=== PATIENT | male | born 1995 | race Caucasian/White ===

== ENCOUNTER 2017-07-24 02:51 | Emergency (ER) | payer OTHER ==
[2017-07-24] MEDS ORDERED: TORAdol 30 mg Injection IV ONE (03:12)
[2017-07-24] MEDS ORDERED: Phenergan 25 MG INJ IV ONE (03:12)
[2017-07-24] MEDS ORDERED: Sodium Chloride 0.9% 1000 ML 1,000 ML IV STA (03:12)
[2017-07-24] MEDS ORDERED: Hydromorphone 1 mg/ml Ampule IV ONE (03:12)
--- NOTE | 2017-07-24 03:12 | ERPHSYRPT ---
- History of Present Illness Time Seen by Provider: 07/24/17 03:09 Historian: patient Physician History: The patient is a 22-year-old male complaining of right upper quadrant abdominal pain that wraps around to his back. The pain began about 2 hours ago. He last ate lasagna 5 hours ago. He is nauseated but has not vomited. He had a fever this morning. He says he feels bad. 3 weeks ago he was at another hospital for methamphetamine abuse. He has not used any methamphetamine for 3 weeks. He has a past medical history of drug abuse, hepatitis C, and depression. Timing/Duration: today, hour(s) (2), gradual onset, worse Quality: aching, sharpness Abdominal Pain Onset Location: RUQ Pain Radiation: back Severity of Pain-Max: severe Severity of Pain-Current: severe Modifying Factors: Improves With: nothing Associated Symptoms: nausea Previous symptoms: no prior history Allergies/Adverse Reactions: No Known Drug Allergies Allergy (Verified 07/24/17 03:13) Home Medications: Paroxetine HCl [Paxil] 20 mg PO DAILY 08/16/15 [History] Hx Tetanus, Diphtheria Vaccination/Date Given: Yes Hx Influenza Vaccination/Date Given: No Hx Pneumococcal Vaccination/Date Given: No - Review of Systems Constitutional: Fever Eyes: No Symptoms Ears, Nose, & Throat: No Symptoms Respiratory: No Cough, No Dyspnea Cardiac: No Chest Pain, No Edema, No Syncope Abdominal/Gastrointestinal: Abdominal Pain, Nausea, No Vomiting, No Diarrhea Genitourinary Symptoms: No Dysuria Musculoskeletal: No Back Pain, No Neck Pain Skin: No Rash Neurological: No Dizziness, No Focal Weakness, No Sensory Changes Psychological: No Symptoms Endocrine: No Symptoms Hematologic/Lymphatic: No Symptoms Immunological/Allergic: No Symptoms All Other Systems: Reviewed and Negative - Past Medical History Pertinent Past Medical History: Yes Neurological History: No Pertinent History ENT History: No Pertinent History Cardiac History: Arrhythmia Respiratory History: No Pertinent History Endocrine Medical History: No Pertinent History Musculoskeletal History: Other GI Medical History: No Pertinent History History: No Pertinent History Psycho-Social History: Anxiety, Depression Male Reproductive Disorders: No Pertinent History Other Medical History: scoliosis - Past Surgical History Past Surgical History: Yes Neuro Surgical History: No Pertinent History Cardiac: No Pertinent History Respiratory: No Pertinent History Gastrointestinal: No Pertinent History Genitourinary: No Pertinent History Musculoskeletal: Orthopedic Surgery Male Surgical History: No Pertinent History Other Surgical History: right arm repair - Social History Smoking Status: Current every day smoker How long have you smoked: yrs Exposure to second hand smoke: No Drug Use: marijuana Patient Lives Alone: No - Nursing Vital Signs Nursing Vital Signs: Initial Vital Signs Temperature 100.7 F 07/24/17 02:56 Pulse Rate 114 H 07/24/17 02:56 Respiratory Rate 24 07/24/17 02:56 Blood Pressure 136/77 07/24/17 02:56 O2 Sat by Pulse Oximetry 97 07/24/17 02:56 Pain Scale Pain Intensity 5 - Physical Exam General Appearance: moderate distress Eye Exam: PERRL/EOMI, eyes nml inspection Ears, Nose, Throat Exam: normal ENT inspection, pharynx normal, moist mucous membranes Neck Exam: normal inspection, non-tender, supple, full range of motion Respiratory Exam: normal breath sounds, lungs clear, No respiratory distress Cardiovascular Exam: regular rate/rhythm Gastrointestinal/Abdomen Exam: tenderness (RUQ) Rectal Exam: not done Back Exam: normal inspection, normal range of motion, No CVA tenderness, No vertebral tenderness Extremity Exam: normal inspection, normal range of motion, pelvis stable Neurologic Exam: alert, 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, cooperative, normal mood/affect, nml cerebellar function, sensation nml, No motor deficits Skin Exam: normal color, warm, dry SpO2 Interpretation: normal - Course EKG Interpreted by Me: RATE, Sinus Rhythm, NORMAL AXIS, NORMAL INTERVALS, NORMAL QRS, NORMAL ST-T - CT Exams Abdomen/Pelvis CT Interpretation: Tele-radiologist Report, Normal Appendix, No appendicitis, Other (Possible gallbladder sludge. small calcification near left UVJ. No hydronephrsosis. small nonobstructing right renal calculi. per Dr Granados.) Ordered Tests: Active Orders 24 hr Category Date Time Status Clean Catch Urine Specimen STAT Care 07/24/17 03:12 Active EKG-ER Only STAT Care 07/24/17 03:12 Active IV Insertion STAT Care 07/24/17 03:12 Active ABDOMEN AND PELVIS W/0 CONTRAS [CT] Stat Exams 07/24/17 03:13 Taken AMYLASE Stat Lab 07/24/17 03:20 Completed BLOOD CULTURE Stat Lab 07/24/17 03:55 Received CBC W DIFF Stat Lab 07/24/17 03:20 Completed CMP Stat Lab 07/24/17 03:20 Completed CULTURE,URINE Stat Lab 07/24/17 05:33 Received LIPASE Stat Lab 07/24/17 03:20 Completed Lactic Acid Stat Lab 07/24/17 03:45 Completed Manual Differential NC Stat Lab 07/24/17 03:20 Completed UA W/ MICROSCOPIC Stat Lab 07/24/17 05:33 Completed Urine Triage Profile Stat Lab 07/24/17 05:33 Completed Medication Summary Discontinued Medications Generic Name Dose Route Start Last Admin Trade Name Micki PRN Reason Stop Dose Admin Hydromorphone HCl 1 mg 07/24/17 03:12 07/24/17 03:28 Hydromorphone 1 Mg/Ml Ampule IV 07/24/17 03:13 1 mg STAT ONE Administration Hydromorphone HCl Confirm 07/24/17 03:19 Dilaudid 2 Mg Injection Administered 07/24/17 03:20 Dose 2 mg .ROUTE .STK-MED ONE Sodium Chloride 1,000 mls @ 999 mls/hr 07/24/17 03:12 07/24/17 05:29 Sodium Chloride 0.9% 1000 Ml IV 07/24/17 04:12 Infused .Q1H1M STA Infusion Sodium Chloride Confirm 07/24/17 03:19 Sodium Chloride 0.9% 1000 Ml Administered 07/24/17 03:20 Dose 1,000 mls @ ud .ROUTE .STK-MED ONE Ketorolac Tromethamine 30 mg 07/24/17 03:12 07/24/17 03:29 Toradol 30 Mg Injection IV 07/24/17 03:13 30 mg STAT ONE Administration Ketorolac Tromethamine Confirm 07/24/17 03:19 Toradol 30 Mg Injection Administered 07/24/17 03:20 Dose 30 mg .ROUTE .STK-MED ONE Promethazine HCl 25 mg 07/24/17 03:12 07/24/17 03:28 Phenergan 25 Mg Inj IV 07/24/17 03:13 25 mg STAT ONE Administration Promethazine HCl Confirm 07/24/17 03:19 Phenergan 25 Mg Inj Administered 07/24/17 03:20 Dose 25 mg .ROUTE .STK-MED ONE Lab/Rad Data: Laboratory Result Diagrams 07/24/17 03:20 07/24/17 03:20 Laboratory Results 07/24/17 07/24/17 07/24/17 Range/Units 05:33 05:33 03:45 WBC (4.0-10.5) K/mm3 RBC (4.1-5.6) M/mm3 Hgb (12.5-18.0) gm/dl Hct (42-50) % MCV (78-100) fl MCH (26-32) pg MCHC (32-36) g/dl RDW (11.5-14.0) % Plt Count (150-450) K/mm3 MPV (6-9.5) fl Absolute Granulocytes (1.4-6.9) Segmented Neutrophils (36.-66.) % Lymphocytes (Manual) (24-44) % Monocytes (Manual) (0.0-12.0) % Platelet Estimate (NORMAL) RBC Morphology Anisocytosis Sodium (137-145) mmol/L Potassium (3.5-5.1) mmol/L Chloride (98-107) mmol/L Carbon Dioxide (22-30) mmol/L Anion Gap (5-15) MEQ/L BUN (9-20) mg/dL Creatinine (0.66-1.25) mg/dL Estimated GFR ML/MIN Glucose (74-106) mg/dL Lactic Acid 2.5 H (0.4-2.0) Calcium (8.4-10.2) mg/dL Total Bilirubin (0.2-1.3) mg/dL AST (17-59) U/L ALT (0-50) U/L Alkaline Phosphatase (38-126) U/L Serum Total Protein (6.3-8.2) g/dL Albumin (3.5-5.0) g/dL Amylase (30-110) U/L Lipase (23-300) U/L Ur Collection Type CLEAN CATCH Urine Color YELLOW (YELLOW) Urine Appearance CLEAR (CLEAR) Urine pH 7.0 (5-6) Ur Specific [place] 1.005 (1.005-1.025) Urine Protein NEGATIVE (Negative) Urine Ketones NEGATIVE (NEGATIVE) Urine Blood NEGATIVE (0-5) Christian/ul Urine Nitrite NEGATIVE (NEGATIVE) Urine Bilirubin NEGATIVE (NEGATIVE) Urine Urobilinogen NORMAL (0-1) mg/dL Ur Leukocyte Esterase 1+ (NEGATIVE) Urine Microscopic WBC 5-10 (0-5) /HPF Ur Epithelial Cells FEW (FEW) /HPF Urine Bacteria MODERATE (NEGATIVE) /HPF Urine Mucus SLIGHT (NEGATIVE) /HPF Urine Culture Reflexed YES (NO) Urine Glucose NEGATIVE (NEGATIVE) mg/dL Urine Opiates Level NEGATIVE (NEGATIVE) Ur Methadone NEGATIVE (NEGATIVE) Urine Barbiturates NEGATIVE (NEGATIVE) Ur Phencyclidine (PCP) NEGATIVE (NEGATIVE) Urine Amphetamine NEGATIVE (NEGATIVE) U Benzodiazepine Level NEGATIVE (NEGATIVE) Urine Cocaine NEGATIVE (NEGATIVE) Urine Marijuana (THC) NEGATIVE (NEGATIVE) Specimen Received 07/24/17 0530 07/24/17 07/24/17 Range/Units 03:20 03:20 WBC 13.4 H (4.0-10.5) K/mm3 RBC 4.25 (4.1-5.6) M/mm3 Hgb 14.4 (12.5-18.0) gm/dl Hct 41.3 L (42-50) % MCV 97.2 (78-100) fl MCH 33.9 H (26-32) pg MCHC 34.9 (32-36) g/dl RDW 12.5 (11.5-14.0) % Plt Count 293 (150-450) K/mm3 MPV 9.5 (6-9.5) fl Absolute Granulocytes 9.98 H (1.4-6.9) Segmented Neutrophils 75 H (36.-66.) % Lymphocytes (Manual) 14 L (24-44) % Monocytes (Manual) 11 (0.0-12.0) % Platelet Estimate NORMAL (NORMAL) RBC Morphology ABNORMAL Anisocytosis 1+ Sodium 137 (137-145) mmol/L Potassium 3.5 (3.5-5.1) mmol/L Chloride 103 (98-107) mmol/L Carbon Dioxide 26 (22-30) mmol/L Anion Gap 11.2 (5-15) MEQ/L BUN 9 (9-20) mg/dL Creatinine 0.91 (0.66-1.25) mg/dL Estimated GFR > 60.0 ML/MIN Glucose 144 H (74-106) mg/dL Lactic Acid (0.4-2.0) Calcium 9.0 (8.4-10.2) mg/dL Total Bilirubin 0.60 (0.2-1.3) mg/dL AST 20 (17-59) U/L ALT 26 (0-50) U/L Alkaline Phosphatase 83 (38-126) U/L Serum Total Protein 6.6 (6.3-8.2) g/dL Albumin 3.8 (3.5-5.0) g/dL Amylase 42 (30-110) U/L Lipase 40 (23-300) U/L Ur Collection Type Urine Color (YELLOW) Urine Appearance (CLEAR) Urine pH (5-6) Ur Specific [place] (1.005-1.025) Urine Protein (Negative) Urine Ketones (NEGATIVE) Urine Blood (0-5) Christian/ul Urine Nitrite (NEGATIVE) Urine Bilirubin (NEGATIVE) Urine Urobilinogen (0-1) mg/dL Ur Leukocyte Esterase (NEGATIVE) Urine Microscopic WBC (0-5) /HPF Ur Epithelial Cells (FEW) /HPF Urine Bacteria (NEGATIVE) /HPF Urine Mucus (NEGATIVE) /HPF Urine Culture Reflexed (NO) Urine Glucose (NEGATIVE) mg/dL Urine Opiates Level (NEGATIVE) Ur Methadone (NEGATIVE) Urine Barbiturates (NEGATIVE) Ur Phencyclidine (PCP) (NEGATIVE) Urine Amphetamine (NEGATIVE) U Benzodiazepine Level (NEGATIVE) Urine Cocaine (NEGATIVE) Urine Marijuana (THC) (NEGATIVE) Specimen Received - Progress Progress: improved Progress Note: 07/24/17 06:17 pt feeling better after dilaudid 1 mg, phenergan 25 mg, toradol 30 mg, and fluids by IV. Counseled pt/family regarding: lab results, diagnosis, need for follow-up, rad results - Departure Time of Disposition: 06:18 Departure Disposition: Home Clinical Impression: UTI (urinary tract infection), Kidney stone, Gallbladder sludge Condition: Stable Critical Care Time: No Referrals: CARLITOS BROSNON [Primary Care Provider] - Additional Instructions: You have an infection in your bladder. By the abdomen and pelvis CT scan there was possible sludge in your gallbladder. Avoid eating fatty foods. There was also a small stone found in your urinary bladder that may have been from your kidney. There was also a tiny stone seen in your right kidney. You were given Toradol 30 mg, Dilaudid 1 mg, Phenergan 25 mg, and fluids by IV in the ER. You were also given Rocephin 1 g by IV. Take ciprofloxacin 500 mg 2 times a day for 7 days. Take naproxen 500 mg 2 times a day as needed. Follow-up with Dr. Bronson in 1-2 days. Prescriptions: Ciprofloxacin [Cipro 500 MG] 1 tab PO BID #14 tablet Naproxen 500 mg PO BID PRN #30 tablet.
[2017-07-24] MEDS ORDERED: TORAdol 30 mg Injection ONE (03:19)
[2017-07-24] MEDS ORDERED: DILAUDID 2 MG INJECTION ONE (03:19)
[2017-07-24] MEDS ORDERED: Sodium Chloride 0.9% 1000 ML 1,000 ML ONE (03:19)
[2017-07-24] MEDS ORDERED: Phenergan 25 MG INJ ONE (03:19)
[2017-07-24 03:39] LABS: Granulocyte Absolute (ANC) 9.98 (1.4-6.9); Hematocrit 41.3 % (42-50); Hemoglobin 14.4 gm/dl (12.5-18.0); Mean Cell Volume 97.2 fl (78-100); Mean Corpuscular Hemoglobin 33.9 pg (26-32); Mean Corpuscular Hgb Concent. 34.9 g/dl (32-36); Mean Platelet Volume 9.5 fl (6-9.5); Platelet Count 293 K/mm3 (150-450); Red Blood Count 4.25 M/mm3 (4.1-5.6); Red Cell Distribution Width 12.5 % (11.5-14.0); White Blood Count 13.4 K/mm3 (4.0-10.5)
[2017-07-24 03:46] LABS: ALBUMIN 3.8 g/dL (3.5-5.0); ALKALINE PHOSPHATASE 83 U/L (38-126); AMYLASE 42 U/L (30-110); ANION GAP 11.2 MEQ/L (5-15); BLOOD UREA NITROGEN 9 mg/dL (9-20); CHLORIDE 103 mmol/L (98-107); Carbon Dioxide 26 mmol/L (22-30); Creatinine 1 0.91 mg/dL (0.66-1.25); Glucose 144 mg/dL (74-106); LIPASE 40 U/L (23-300); Potassium 3.5 mmol/L (3.5-5.1); SGOT/AST 20 U/L (17-59); SGPT/ALT 26 U/L (0-50); SODIUM 137 mmol/L (137-145); Total Protein 6.6 g/dL (6.3-8.2)
[2017-07-24 03:58] LABS: Lactic Acid 2.5 (0.4-2.0)
[2017-07-24 05:42] LABS: Appearance CLEAR (CLEAR)
[2017-07-24 05:43] LABS: Bacteria MODERATE /HPF (NEGATIVE); Bilirubin NEGATIVE (NEGATIVE); Blood NEGATIVE Ery/ul (0-5); Epithelial Cells FEW /HPF (FEW); Glucose NEGATIVE (NEGATIVE); Ketones NEGATIVE (NEGATIVE); Leukocyte Esterase 1+ (NEGATIVE); Mucus SLIGHT /HPF (NEGATIVE); Nitrite NEGATIVE (NEGATIVE); Protein,Urine Dip NEGATIVE (Negative); Specific Gravity 1.005 (1.005-1.025); Urobilinogen NORMAL mg/dL (0-1)
[2017-07-24 05:43] LABS: Lymphocytes 14 % (24-44); Neutrophils 75 % (36.-66.); Total Cells Counted 100
[2017-07-24 05:44] LABS: ANISOCYTOSIS 1+; Monocyte 11 % (0.0-12.0); Platelet Estimate NORMAL (NORMAL)
[2017-07-24 05:47] LABS: Amphetamine,Urine NEGATIVE (NEGATIVE); Barbiturate,Urine NEGATIVE (NEGATIVE); Benzodiazepine,Urine NEGATIVE (NEGATIVE); Cocaine,Urine NEGATIVE (NEGATIVE); Methadone,Urine NEGATIVE (NEGATIVE); Opiate,Urine NEGATIVE (NEGATIVE); PCP,Urine NEGATIVE (NEGATIVE); THC,Urine NEGATIVE (NEGATIVE)
[2017-07-24] MEDS ORDERED: ROCEPHIN 1 Gm-D5w 50 ml Bag** 1 G/50 ML IVPB IV STA (06:15)
[2017-07-24] MEDS ORDERED: ROCEPHIN 1 Gm-D5w 50 ml Bag** 1 G/50 ML IVPB IV ONE (06:18)
[2017-07-24 06:34] VITALS: BP 108/70; PULSE 68; O2SAT 98
--- NOTE | 2017-07-24 12:53 | XRAY ---
Exam: CT of the abdomen and pelvis without IV contrast from 07/24/2017. CTDI: 11.78 Comparison: CT of the abdomen and pelvis without IV contrast from 03/20/2015. Indication: 22-year-old male with localized right upper quadrant abdominal pain radiating into back, nausea without emesis. Technique: Non-IV contrast axial images were obtained through the abdomen and pelvis. Reconstructed coronal and sagittal images were created and reviewed. Findings: At the superior margin of the AP waist presser image, at least moderate dextroscoliosis is seen centered near the T6 level. The visualized lung bases reveal a subpleural calcified granuloma at the posterior medial left lung base representing no change. Assessment of the solid organs is limited without the use of IV contrast. With this limitation in mind, the liver appears unremarkable. The urinary bladder is mildly distended. No definite gallbladder wall thickening or signs of gallbladder inflammation are seen. No dense calcifications are seen within the gallbladder lumen. There is a slightly higher attenuation within the mid and posterior dependent portions of the gallbladder lumen as compared to the anterior portion of the gallbladder lumen. The possibility of some intraluminal biliary sludge is not excluded. Further evaluation with gallbladder ultrasound may be helpful if symptoms persist. The spleen, pancreas, and adrenal glands appear unremarkable. The kidneys reveal a punctate nonobstructing stone within the middle third of the right kidney measuring about 3 mm in diameter. In addition, there are one or possibly 2 other tiny nonobstructing renal calculi seen on the coronal images. No calcifications are seen within the left kidney. I appreciate no hydronephrosis. However, on axial images #80 and #81, I see a new 2.5 mm calcification at the posterior left lateral margin of the urinary bladder. I believe this is most consistent with a distal left ureteral stone within the intravesicular portion of the distal left ureter. I do not appreciate any significant left hydroureter proximal to this or hydronephrosis. The right ureter reveals no abnormality. The remainder of the urinary bladder appears unremarkable. There is no evidence of abdominal aortic aneurysm. No abnormal retroperitoneal lymphadenopathy is seen. No ventral abdominal wall hernia is seen. There is no free intraperitoneal air. I see no findings to suggest acute appendicitis within the right lower quadrant. Some scattered stool is seen throughout the colon. No bowel obstruction or bowel wall thickening is seen. Pelvic lymph nodes are not enlarged. There is a suggestion trace/minimal free intraperitoneal fluid within the lower posterior pelvis on axial images #73 through #78. This is abnormal in a male. The seminal vesicles and prostate gland appear unremarkable. The skeleton reveals no acute fracture or aggressive bone lesion. Impression: 1. The gallbladder is partially distended and reveals no dense calcifications within it. No gallbladder wall thickening or intrahepatic biliary duct distention is seen. There is a question of some subtle increased attenuation within the posterior dependent portion of the gallbladder lumen which could possibly represent some biliary sludge. If right upper quadrant abdominal pain persists, further evaluation with a gallbladder ultrasound is recommended. 2. There is a new 2.5 mm calcification at the posterior left lateral margin of the urinary bladder, probably at the left UVJ. This does not appear to be causing significant left-sided hydroureter or hydronephrosis. Nevertheless, I believe this represents a tiny distal left ureteral stone. It is new from 03/20/2015. 3. There are 2 or possibly 3 small nonobstructing stones within the right kidney. No acute obstructive uropathy is seen on the right. 4. Trace/minimal free intraperitoneal fluid is seen within the lower posterior pelvis extending slightly more to the right of midline than left. This is abnormal in a male. 5. No other significant acute process is seen within the abdomen or pelvis.
== END 2017-07-24 06:58 | disposition home or self-care (01) ==
LOC: ED 02:51
DX: N39.0 Urinary tract infection, site not specified (principal); N20.0 Calculus of kidney; Z72.0 Tobacco use; F41.8 Other specified anxiety disorders; M41.9 Scoliosis, unspecified
CPT/HCPCS: 36000; 36415; 74176; 80053; 80307; 81000; 82150; 83605; 83690; 85025; 87040; 87086; 93005; 96360; 96365; 96372; 96374; 96375; 99284; J0696; J1170; J1885; J2550

== ENCOUNTER 2017-07-24 19:06 | Inpatient (IN) | payer OTHER ==
[2017-07-24] MEDS ORDERED: TORAdol 30 mg Injection IV ONE (19:34)
[2017-07-24] MEDS ORDERED: Sodium Chloride 0.9% 1000 ML 1,000 ML IV STA (19:34)
[2017-07-24] MEDS ORDERED: Zofran 4 MG/2 ML VIAL IV ONE (19:34)
[2017-07-24] MEDS ORDERED: Zofran 4 MG/2 ML VIAL ONE (19:40)
[2017-07-24] MEDS ORDERED: TORAdol 30 mg Injection ONE (19:40)
[2017-07-24] MEDS ORDERED: Sodium Chloride 0.9% 1000 ML 1,000 ML ONE (19:40)
--- NOTE | 2017-07-24 19:40 | ERPHSYRPT ---
- History of Present Illness Time Seen by Provider: 07/24/17 19:28 Historian: patient Exam Limitations: no limitations Physician History: Pt has been c/o right sided abdominal pain x 5 days, developed fever 3 days ago. He was seen in urgent care yesterday, a throat swab was done, also seen here, and diagnosed with kidney stones and UTI, given one dose of Rocephine. He is nauseated, denies vomiting, diarrhea, bloody urine other complaints. He is still c/o sore throat and difficulty swallowing. Pt admits using iv drugs in the past, he has not been using it for the last 3 years. Timing/Duration: day(s) (5) Activities at Onset: none Quality: cramping, sharpness Abdominal Pain Onset Location: RUQ Pain Radiation: flank (right) Severity of Pain-Max: severe Severity of Pain-Current: severe Modifying Factors: Improves With: nothing Associated Symptoms: nausea Previous symptoms: different symptoms Allergies/Adverse Reactions: No Known Drug Allergies Allergy (Verified 07/24/17 19:38) Home Medications: Paroxetine HCl [Paxil] 20 mg PO DAILY 08/16/15 [History] Hx Tetanus, Diphtheria Vaccination/Date Given: Yes Hx Influenza Vaccination/Date Given: No Hx Pneumococcal Vaccination/Date Given: No - Review of Systems Constitutional: Fever, Chills Ears, Nose, & Throat: Throat Pain Abdominal/Gastrointestinal: Abdominal Pain, Nausea Genitourinary Symptoms: Flank Pain All Other Systems: Reviewed and Negative - Past Medical History Pertinent Past Medical History: Yes Neurological History: No Pertinent History ENT History: No Pertinent History Cardiac History: Arrhythmia Respiratory History: No Pertinent History Endocrine Medical History: No Pertinent History Musculoskeletal History: Other GI Medical History: No Pertinent History History: No Pertinent History Psycho-Social History: Anxiety, Depression Male Reproductive Disorders: No Pertinent History Other Medical History: scoliosis - Past Surgical History Past Surgical History: Yes Neuro Surgical History: No Pertinent History Cardiac: No Pertinent History Respiratory: No Pertinent History Gastrointestinal: No Pertinent History Genitourinary: No Pertinent History Musculoskeletal: Orthopedic Surgery Male Surgical History: No Pertinent History Other Surgical History: right arm repair - Social History Smoking Status: Current every day smoker How long have you smoked: yrs Exposure to second hand smoke: No Drug Use: marijuana Patient Lives Alone: No - Nursing Vital Signs Nursing Vital Signs: Initial Vital Signs Temperature 102.9 F 07/24/17 19:26 Pulse Rate 114 H 07/24/17 19:26 Respiratory Rate 24 07/24/17 19:26 Blood Pressure 129/84 07/24/17 19:26 O2 Sat by Pulse Oximetry 98 07/24/17 19:26 Pain Scale Pain Intensity 7 - Physical Exam General Appearance: no apparent distress Eye Exam: eyes nml inspection Ears, Nose, Throat Exam: normal ENT inspection Neck Exam: normal inspection, non-tender, supple Respiratory Exam: normal breath sounds, lungs clear, airway intact, No chest tenderness Cardiovascular Exam: normal heart sounds, normal peripheral pulses, tachycardia , No murmur Gastrointestinal/Abdomen Exam: tenderness (diffuse, upper abdomen, severe), guarding (voluntary), No distention, No mass Male Genitalia Exam: normal genitalia Rectal Exam: normal rectal tone Back Exam: normal inspection, CVA tenderness (right), vertebral tenderness ( diffuse, lower lumbar spine, no point tenderness, no skin changes.), other ( scoliosis) Extremity Exam: normal inspection Neurologic Exam: alert, 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, cooperative, normal mood/affect, nml station & gait, No motor deficits, No sensory deficit, No motor weakness Skin Exam: normal color, warm, dry, No rash Lymphatic Exam: No adenopathy SpO2 Interpretation: normal Oxygen Delivery: Room Air - Radiology Exams Chest X-ray Interpretation: Interpreted by me, Negative, Other (scoliosis) - CT Exams Abdomen/Pelvis CT Interpretation: Negative, Tele-radiologist Report Soft Tissue Neck CT Interpretation: Negative, Tele-radiologist Report, Other (prominent tonsils, no abscess.) Ordered Tests: Active Orders 24 hr Category Date Time Status EKG-ER Only STAT Care 07/24/17 19:34 Active IV Insertion STAT Care 07/24/17 19:34 Active NPO (ED) STAT Care 07/24/17 19:34 Active ABDOMEN AND PELVIS W/0 CONTRAS [CT] Stat Exams 07/24/17 19:35 Taken CHEST 2 VIEWS (PA AND LAT) Stat Exams 07/24/17 21:33 Taken NECK WITH CONTRAST [CT] Stat Exams 07/24/17 21:32 Taken BLOOD CULTURE Stat Lab 07/24/17 20:00 Received CBC W DIFF Stat Lab 07/24/17 20:00 Completed CMP Stat Lab 07/24/17 20:00 Completed CULTURE, THROAT Stat Lab 07/24/17 20:00 Received CULTURE,URINE Stat Lab 07/24/17 20:00 Received LIPASE Stat Lab 07/24/17 20:00 Completed Lactic Acid Stat Lab 07/24/17 20:02 Completed Lactic Acid Stat Lab 07/24/17 22:07 Ordered [place] Screen Stat Lab 07/24/17 20:00 Completed PROTIME WITH INR Stat Lab 07/24/17 20:00 Completed STREP SCREEN-BETA A Stat Lab 07/24/17 20:00 Completed UA W/RFX UR CULTURE Stat Lab 07/24/17 20:31 Completed Urine Triage Profile Stat Lab 07/24/17 20:31 Completed Medication Summary Discontinued Medications Generic Name Dose Route Start Last Admin Trade Name Freq PRN Reason Stop Dose Admin Sodium Chloride 1,000 mls @ 999 mls/hr 07/24/17 19:34 07/24/17 20:30 Sodium Chloride 0.9% 1000 Ml IV 07/24/17 20:34 Infused .Q1H1M STA Infusion Sodium Chloride Confirm 07/24/17 19:40 Sodium Chloride 0.9% 1000 Ml Administered 07/24/17 19:41 Dose 1,000 mls @ ud .ROUTE .STK-MED ONE Ketorolac Tromethamine 30 mg 07/24/17 19:34 07/24/17 20:04 Toradol 30 Mg Injection IV 07/24/17 19:35 30 mg STAT ONE Administration Ketorolac Tromethamine Confirm 07/24/17 19:40 Toradol 30 Mg Injection Administered 07/24/17 19:41 Dose 30 mg .ROUTE .STK-MED ONE Morphine Sulfate 4 mg 07/24/17 21:49 07/24/17 22:33 Morphine Sulfate 4 Mg Inj IV 07/24/17 21:50 4 mg STAT ONE Administration Morphine Sulfate Confirm 07/24/17 21:55 Morphine Sulfate 4 Mg Inj Administered 07/24/17 21:56 Dose 4 mg .ROUTE .STK-MED ONE Ondansetron HCl 4 mg 07/24/17 19:34 07/24/17 20:04 Zofran 4 Mg/2 Ml Vial IV 07/24/17 19:35 4 mg STAT ONE Administration Ondansetron HCl Confirm 07/24/17 19:40 Zofran 4 Mg/2 Ml Vial Administered 07/24/17 19:41 Dose 4 mg .ROUTE .STK-MED ONE Lab/Rad Data: Laboratory Result Diagrams 07/24/17 20:00 07/24/17 20:00 Laboratory Results 07/24/17 07/24/17 07/24/17 Range/Units 20:31 20:31 20:02 WBC (4.0-10.5) K/mm3 RBC (4.1-5.6) M/mm3 Hgb (12.5-18.0) gm/dl Hct (42-50) % MCV (78-100) fl MCH (26-32) pg MCHC (32-36) g/dl RDW (11.5-14.0) % Plt Count (150-450) K/mm3 MPV (6-9.5) fl Gran % (36.0-66.0) % Eos # (Auto) (0-0.5) Absolute Lymphs (auto) (1.0-4.6) Absolute Monos (auto) (0.0-1.3) Lymphocytes % (24.0-44.0) % Monocytes % (0.0-12.0) % Eosinophils % (0.00-5.0) % Basophils % (0.0-0.4) % Absolute Granulocytes (1.4-6.9) Basophils # (0-0.4) PT (8.83-12.87) SECONDS INR (0.8-3.0) Sodium (137-145) mmol/L Potassium (3.5-5.1) mmol/L Chloride (98-107) mmol/L Carbon Dioxide (22-30) mmol/L Anion Gap (5-15) MEQ/L BUN (9-20) mg/dL Creatinine (0.66-1.25) mg/dL Estimated GFR ML/MIN Glucose (74-106) mg/dL Lactic Acid 2.7 H (0.4-2.0) Calcium (8.4-10.2) mg/dL Total Bilirubin (0.2-1.3) mg/dL AST (17-59) U/L ALT (0-50) U/L Alkaline Phosphatase (38-126) U/L Serum Total Protein (6.3-8.2) g/dL Albumin (3.5-5.0) g/dL Lipase (23-300) U/L Ur Collection Type VOID Urine Color LT.YELLOW (YELLOW) Urine Appearance CLEAR (CLEAR) Urine pH 6.0 (5-6) Ur Specific [place] 1.000 (1.005-1.025) Urine Protein NEGATIVE (Negative) Urine Ketones NEGATIVE (NEGATIVE) Urine Blood NEGATIVE (0-5) Christian/ul Urine Nitrite NEGATIVE (NEGATIVE) Urine Bilirubin NEGATIVE (NEGATIVE) Urine Urobilinogen NORMAL (0-1) mg/dL Ur Leukocyte Esterase NEGATIVE (NEGATIVE) Urine Culture Reflexed NO (NO) Urine Glucose 50 (NEGATIVE) mg/dL Urine Opiates Level NEGATIVE (NEGATIVE) Ur Methadone NEGATIVE (NEGATIVE) Urine Barbiturates NEGATIVE (NEGATIVE) Ur Phencyclidine (PCP) NEGATIVE (NEGATIVE) Urine Amphetamine NEGATIVE (NEGATIVE) U Benzodiazepine Level NEGATIVE (NEGATIVE) Urine Cocaine NEGATIVE (NEGATIVE) Urine Marijuana (THC) NEGATIVE (NEGATIVE) Monoscreen (Negative) Streptococcus Screen (Negative) Specimen Received 07/26 199907/24/17 07/24/17 07/24/17 Range/Units 20:00 20:00 20:00 WBC (4.0-10.5) K/mm3 RBC (4.1-5.6) M/mm3 Hgb (12.5-18.0) gm/dl Hct (42-50) % MCV (78-100) fl MCH (26-32) pg MCHC (32-36) g/dl RDW (11.5-14.0) % Plt Count (150-450) K/mm3 MPV (6-9.5) fl Gran % (36.0-66.0) % Eos # (Auto) (0-0.5) Absolute Lymphs (auto) (1.0-4.6) Absolute Monos (auto) (0.0-1.3) Lymphocytes % (24.0-44.0) % Monocytes % (0.0-12.0) % Eosinophils % (0.00-5.0) % Basophils % (0.0-0.4) % Absolute Granulocytes (1.4-6.9) Basophils # (0-0.4) PT 14.8 H (8.83-12.87) SECONDS INR 1.27 (0.8-3.0) Sodium (137-145) mmol/L Potassium (3.5-5.1) mmol/L Chloride (98-107) mmol/L Carbon Dioxide (22-30) mmol/L Anion Gap (5-15) MEQ/L BUN (9-20) mg/dL Creatinine (0.66-1.25) mg/dL Estimated GFR ML/MIN Glucose (74-106) mg/dL Lactic Acid (0.4-2.0) Calcium (8.4-10.2) mg/dL Total Bilirubin (0.2-1.3) mg/dL AST (17-59) U/L ALT (0-50) U/L Alkaline Phosphatase (38-126) U/L Serum Total Protein (6.3-8.2) g/dL Albumin (3.5-5.0) g/dL Lipase (23-300) U/L Ur Collection Type Urine Color (YELLOW) Urine Appearance (CLEAR) Urine pH (5-6) Ur Specific [place] (1.005-1.025) Urine Protein (Negative) Urine Ketones (NEGATIVE) Urine Blood (0-5) Christian/ul Urine Nitrite (NEGATIVE) Urine Bilirubin (NEGATIVE) Urine Urobilinogen (0-1) mg/dL Ur Leukocyte Esterase (NEGATIVE) Urine Culture Reflexed (NO) Urine Glucose (NEGATIVE) mg/dL Urine Opiates Level (NEGATIVE) Ur Methadone (NEGATIVE) Urine Barbiturates (NEGATIVE) Ur Phencyclidine (PCP) (NEGATIVE) Urine Amphetamine (NEGATIVE) U Benzodiazepine Level (NEGATIVE) Urine Cocaine (NEGATIVE) Urine Marijuana (THC) (NEGATIVE) Monoscreen NEGATIVE (Negative) Streptococcus Screen NEGATIVE (Negative) Specimen Received 07/24/17 07/24/17 Range/Units 20:00 20:00 WBC 11.4 H (4.0-10.5) K/mm3 RBC 3.94 L (4.1-5.6) M/mm3 Hgb 13.3 (12.5-18.0) gm/dl Hct 38.4 L (42-50) % MCV 97.5 (78-100) fl MCH 33.7 H (26-32) pg MCHC 34.6 (32-36) g/dl RDW 12.7 (11.5-14.0) % Plt Count 242 (150-450) K/mm3 MPV 9.3 (6-9.5) fl Gran % 70.3 H (36.0-66.0) % Eos # (Auto) 0.01 (0-0.5) Absolute Lymphs (auto) 1.87 (1.0-4.6) Absolute Monos (auto) 1.50 H (0.0-1.3) Lymphocytes % 16.4 L (24.0-44.0) % Monocytes % 13.1 H (0.0-12.0) % Eosinophils % 0.1 (0.00-5.0) % Basophils % 0.1 (0.0-0.4) % Absolute Granulocytes 8.04 H (1.4-6.9) Basophils # 0.01 (0-0.4) PT (8.83-12.87) SECONDS INR (0.8-3.0) Sodium 138 (137-145) mmol/L Potassium 3.2 L (3.5-5.1) mmol/L Chloride 106 (98-107) mmol/L Carbon Dioxide 23 (22-30) mmol/L Anion Gap 11.7 (5-15) MEQ/L BUN 9 (9-20) mg/dL Creatinine 0.93 (0.66-1.25) mg/dL Estimated GFR > 60.0 ML/MIN Glucose 183 H (74-106) mg/dL Lactic Acid (0.4-2.0) Calcium 8.8 (8.4-10.2) mg/dL Total Bilirubin 0.70 (0.2-1.3) mg/dL AST 20 (17-59) U/L ALT 25 (0-50) U/L Alkaline Phosphatase 70 (38-126) U/L Serum Total Protein 6.3 (6.3-8.2) g/dL Albumin 3.4 L (3.5-5.0) g/dL Lipase 28 (23-300) U/L Ur Collection Type Urine Color (YELLOW) Urine Appearance (CLEAR) Urine pH (5-6) Ur Specific [place] (1.005-1.025) Urine Protein (Negative) Urine Ketones (NEGATIVE) Urine Blood (0-5) Christian/ul Urine Nitrite (NEGATIVE) Urine Bilirubin (NEGATIVE) Urine Urobilinogen (0-1) mg/dL Ur Leukocyte Esterase (NEGATIVE) Urine Culture Reflexed (NO) Urine Glucose (NEGATIVE) mg/dL Urine Opiates Level (NEGATIVE) Ur Methadone (NEGATIVE) Urine Barbiturates (NEGATIVE) Ur Phencyclidine (PCP) (NEGATIVE) Urine Amphetamine (NEGATIVE) U Benzodiazepine Level (NEGATIVE) Urine Cocaine (NEGATIVE) Urine Marijuana (THC) (NEGATIVE) Monoscreen (Negative) Streptococcus Screen (Negative) Specimen Received - Progress Progress: improved Progress Note: 07/24/17 23:[address] Mccauley discussed our results and this patient;'s current condition, he agreed to admit him for iv antibiotics, observation, Gallbladder US, and MRI L-S spine in the morning. I informed patient about this, he agreed. Discussed with .: Garrick Will see patient in: hospital (observation) Counseled pt/family regarding: lab results, diagnosis, rad results - Departure Time of Disposition: 23:23 Departure Disposition: Observation Clinical Impression: Fever Qualifiers: Fever type: unspecified Qualified Code(s): R50.9 - Fever, unspecified Abdominal pain Qualifiers: Abdominal location: right upper quadrant Qualified Code(s): R10.11 - Right upper quadrant pain Condition: Stable Critical Care Time: No Referrals: CARLITOS DEJESUS [Primary Care Provider] -
[2017-07-24 20:08] LABS: Lactic Acid 2.7 (0.4-2.0)
[2017-07-24 20:11] LABS: BASOPHIL % 0.1 % (0.0-0.4); Basophil (Absolute #) 0.01 (0-0.4); Eosinophil % 0.1 % (0.00-5.0); Eosinophil (Absolute #) 0.01 (0-0.5); Granulocyte Absolute (ANC) 8.04 (1.4-6.9); Granulocytes % 70.3 % (36.0-66.0); Hematocrit 38.4 % (42-50); Hemoglobin 13.3 gm/dl (12.5-18.0); Lymphocyte (Absolute #) 1.87 (1.0-4.6); Lymphocytes % 16.4 % (24.0-44.0); Mean Cell Volume 97.5 fl (78-100); Mean Corpuscular Hgb Concent. 34.6 g/dl (32-36); Mean Platelet Volume 9.3 fl (6-9.5); Monocytes % 13.1 % (0.0-12.0); Platelet Count 242 K/mm3 (150-450); Red Blood Count 3.94 M/mm3 (4.1-5.6); Red Cell Distribution Width 12.7 % (11.5-14.0); White Blood Count 11.4 K/mm3 (4.0-10.5)
[2017-07-24 20:20] LABS: Mean Corpuscular Hemoglobin 33.7 pg (26-32)
[2017-07-24 20:24] LABS: INR 1.27 (0.8-3.0)
[2017-07-24 20:27] LABS: ALBUMIN 3.4 g/dL (3.5-5.0); ALKALINE PHOSPHATASE 70 U/L (38-126); ANION GAP 11.7 MEQ/L (5-15); BLOOD UREA NITROGEN 9 mg/dL (9-20); CHLORIDE 106 mmol/L (98-107); Calcium 8.8 mg/dL (8.4-10.2); Carbon Dioxide 23 mmol/L (22-30); Creatinine 1 0.93 mg/dL (0.66-1.25); Glucose 183 mg/dL (74-106); LIPASE 28 U/L (23-300); Potassium 3.2 mmol/L (3.5-5.1); SGOT/AST 20 U/L (17-59); SODIUM 138 mmol/L (137-145); Total Protein 6.3 g/dL (6.3-8.2)
[2017-07-24 20:35] LABS: SGPT/ALT 25 U/L (0-50)
[2017-07-24 20:58] LABS: Amphetamine,Urine NEGATIVE (NEGATIVE); Barbiturate,Urine NEGATIVE (NEGATIVE); Benzodiazepine,Urine NEGATIVE (NEGATIVE); Cocaine,Urine NEGATIVE (NEGATIVE); Methadone,Urine NEGATIVE (NEGATIVE); Opiate,Urine NEGATIVE (NEGATIVE); PCP,Urine NEGATIVE (NEGATIVE); THC,Urine NEGATIVE (NEGATIVE)
[2017-07-24 21:27] LABS: Appearance CLEAR (CLEAR)
[2017-07-24 21:28] LABS: Bilirubin NEGATIVE (NEGATIVE); Blood NEGATIVE Ery/ul (0-5); Glucose 50 mg/dL (NEGATIVE); Ketones NEGATIVE (NEGATIVE); Leukocyte Esterase NEGATIVE (NEGATIVE); Nitrite NEGATIVE (NEGATIVE); Protein,Urine Dip NEGATIVE (Negative); Urobilinogen NORMAL mg/dL (0-1)
[2017-07-24] MEDS ORDERED: MORPHINE SULFATE 4 MG INJ IV ONE (21:49)
[2017-07-24] MEDS ORDERED: MORPHINE SULFATE 4 MG INJ ONE (21:55)
[2017-07-24] MEDS ORDERED: Vancomycin 1GM/ Ns 250ML*** 1 GM/250 ML IVPB IV ONE (23:16)
[2017-07-24] MEDS ORDERED: Zosyn 3.375GM/100 Ml D5W 3.375 GM/100 ML IVPB IV STA (23:16)
[2017-07-24] MEDS ORDERED: Zosyn 3.375GM/100 Ml D5W 3.375 GM/100 ML IVPB IV ONE (23:21)
[2017-07-24] MEDS ORDERED: Vancomycin 1GM/ Ns 250ML*** 250 ML IV ONE (23:21)
[2017-07-25] MEDS: Zosyn 3.375GM/100 Ml D5W 3.375 GM/100 ML IVPB IV SCH ×4 (00:24→18:17)
[2017-07-25] MEDS: TYLENOL 325 MG PO PRN ×5 (00:28→20:02)
[2017-07-25] MEDS: Sodium Chloride 0.9% 1000 ML 1,000 ML IV SCH ×2 (00:30→15:53)
[2017-07-25] MEDS: MORPHINE SULFATE 4 MG INJ IV PRN ×5 (03:30→19:56)
[2017-07-25 06:07] LABS: Granulocyte Absolute (ANC) 6.58 (1.4-6.9); Hematocrit 41.3 % (42-50); Mean Corpuscular Hemoglobin 33.6 pg (26-32); Mean Corpuscular Hgb Concent. 33.9 g/dl (32-36); Mean Platelet Volume 9.2 fl (6-9.5); Platelet Count 222 K/mm3 (150-450); Red Blood Count 4.17 M/mm3 (4.1-5.6); Red Cell Distribution Width 13.1 % (11.5-14.0)
[2017-07-25 06:48] LABS: ANION GAP 10.5 MEQ/L (5-15); BLOOD UREA NITROGEN 9 mg/dL (9-20); CHLORIDE 111 mmol/L (98-107); Calcium 8.7 mg/dL (8.4-10.2); Carbon Dioxide 24 mmol/L (22-30); Creatinine 1 0.92 mg/dL (0.66-1.25); Glucose 94 mg/dL (74-106); Potassium 4.1 mmol/L (3.5-5.1); SODIUM 141 mmol/L (137-145)
[2017-07-25 07:09] LABS: Lymphocytes 28 % (24-44); Monocyte 6 % (0.0-12.0); Neutrophils 66 % (36.-66.); Total Cells Counted 100
[2017-07-25 07:10] LABS: Platelet Estimate NORMAL (NORMAL)
[2017-07-25] MEDS: Nicoderm CQ 21 MG TOP SCH (09:32)
[2017-07-25] MEDS: CHLORASEPTIC SPRAY 180 ML PO PRN ×4 (09:33→20:16)
--- NOTE | 2017-07-25 10:06 | XRAY ---
Exam: Two-view chest from 07/24/2017. Comparison: Two-view chest from 11/14/2015. Indication: Cough, fever. Findings: Upright PA and lateral chest films are symmetrically from dilation. The heart size and contour are normal. The edna and mediastinal structures appear unremarkable. The lungs are well inflated. No air space infiltrates, vascular congestion, pleural fluid, or pneumothorax is seen. EKG leads are seen in place. There is pronounced upper mid thoracic dextroscoliosis and kyphosis. Mild to moderate vertebral endplate spurring is seen at this level. Impression: 1. No acute cardiopulmonary disease is seen, no change from 11/14/2015. 2. Pronounced upper mid thoracic dextroscoliosis and kyphosis with adjacent vertebral endplate spurring-stable.
--- NOTE | 2017-07-25 10:45 | HP ---
CHIEF COMPLAINT: Right upper quadrant abdominal pain and throat pain. HISTORY OF PRESENT ILLNESS: The patient is a 22 year-old white male patient who has significant medical history recently. Approximately three to four weeks ago, he overdosed on methamphetamine. He ended up at [facility] and actually had to be coded due to his heart arrhythmia. Afterwards he recovered nicely but since that time he has been having problems with right upper quadrant abdominal pain. He has been in the emergency room a couple of times. Approximately a week ago he had a right kidney stone in the ureteropelvic junction which the patient reports it did pass but there are two other stones noted in the kidney itself. The patient has continued to complain of right upper quadrant abdominal pain since that time. He began running a fever of 102F plus, seen in the emergency room at 102.9F. Evaluation at that time showed a thickened contracted gallbladder with sludging. He is exquisitely tender in the right upper quadrant. The patient also complained of throat pain and nosebleed on the left side nostril only. PAST MEDICAL HISTORY: Significant use of methamphetamine. The patient reports he has been sober for the last three weeks now and does not intend to use again as this was a significant problem in the past and realizes how close he was to . HOME MEDICATIONS: He had been placed on Cipro from the emergency room but he did not fill it. Ibuprofen 200 mg PRN, naproxen 500 mg b.i.d. which he has not had filled, paroxetine 20 mg daily for depression. ALLERGIES: NKDA. PHYSICAL EXAMINATION: Revealed a well nourished, well developed 22 year-old white male who is currently in mild to moderate distress due to right upper quadrant abdominal pain. His vital signs from the emergency room showed temperature 102.9F, pulse 114, respiratory rate 24, blood pressure 129/94. O2 saturation 98% on room air. HEENT: Normocephalic, atraumatic. Pupils equal round reactive to light. Extraocular movements intact. Oropharynx is moist. There is no evidence of epistaxis at this time. NECK: Supple without lymphadenopathy, thyromegaly or JVD. CHEST: Clear to auscultation with good air movement bilaterally. HEART: Regular rate and rhythm without murmurs, rubs or gallops. ABDOMEN: Exquisitely tender. There is guarding present. Right upper quadrant seems to be the area of most intense pain. EXTREMITIES: Without clubbing, cyanosis or edema. NEUROLOGIC: The patient is alert and oriented x3 with no focal deficits. LAB DATA AND TESTS: The patient's initial laboratory studies: CT scan repeat now shows distended stomach with food and fluid level, contracted gallbladder and appeared to be some sludging present on the previous CT scan. The appendix appeared to be normal. There appears to be no obstructing stone at this time. ASSESSMENT: A patient with probable acute cholecystitis. He has been admitted with IV Vancomycin and Zosyn pending the surgical consultation. He had ultrasound of the gallbladder pending. We also scheduled MRI of his lumbar and thoracic spine as he is complaining of pain in this area as well. He has been made NPO with surgical consultation and receiving IV fluid. The patient's most current labs showed his white count to be 11,000 with no significant left shift. His hemoglobin 14.0, PLT count 222,000. Metabolic panel is essentially normal with BUN 9 and creatinine 0.92. Lactic acid is now 1.4. His EKG showed normal sinus rhythm, normal axis and no acute changes.
[2017-07-25] MEDS: Bactroban OINTMENT TP SCH ×3 (11:50→22:04)
[2017-07-25] MEDS: Paxil 20 MG PO SCH (12:00)
[2017-07-25] MEDS: Zofran 4 MG/2 ML VIAL IV PRN (12:55)
--- NOTE | 2017-07-25 12:55 | XRAY ---
Exam: MRI of the thoracic spine without and with 15 ML's of IV Magnevist from 07/25/2017. Comparison: Thoracic spine radiographs from 11/14/2015. Indication: Back pain, fever, infection of unknown origin. Technique: Sagittal localizer images of the upper and lower thoracic spine were obtained with fish oil markers in place. Subsequently, sagittal T1 FLAIR and T2 fast spin-echo images and axial T1-weighted and T2 weighted fast spin echo images of the thoracic spine were obtained. Lastly, post IV contrast axial and sagittal T1-weighted images were obtained. Findings: I again note at least a moderate rotary dextroscoliosis centered at T5-T6. I see no acute thoracic spine fracture or AP subluxation. Some small Schmorl's nodes are seen scattered throughout the thoracic spine. I again note small anterior lateral vertebral endplate spurs at T5-T6 and T6-T7. There is some slight chronic loss of the anterior vertebral body height of T6 and T7, particularly along the left margin. The thoracic discs appear preserved. Bone marrow signal within the thoracic spine appears unremarkable. The spinal cord appears of normal diameter and signal intensity. No thoracic canal spinal stenosis is seen. The neural foramen appear adequately preserved. I see no abnormal enhancement on the post Magnevist T1 weighted images. There is no evidence of epidural abscess. No findings to suggest vertebral osteomyelitis are seen. I see no definite focal herniated disc. Impression: 1. There is a moderate rotary dextroscoliosis again seen centered at approximately T5-T6. The sagittal images also reveal moderate upper mid dorsal kyphosis representing no change. 2. Mild chronic degenerative spurring is seen at T5-T6 and T6-T7 as well as mild chronic loss of the anterior vertebral body height of the T6 and T7 vertebral bodies, particularly along the left margin. 3. I see no evidence of acute fracture, vertebral osteomyelitis, epidural abscess, or other significant thoracic spine abnormality.
--- NOTE | 2017-07-25 13:16 | XRAY ---
Exam: MRI of the lumbar spine without and with 15 ML's of IV Magnevist from 07/25/2017. Comparison: MRI of the lumbar spine without IV contrast from 04/23/2016, lumbar spine CT from 04/23/2016, and five-view lumbar spine radiograph series from 09/29/2015. Indication: Back pain, fever, infection of unknown origin. Technique: Routine multiplanar, multisequence imaging was obtained through the lumbar spine both without and with IV contrast. Findings: There are 5 lumbar-type vertebra. I again note some small incidental Schmorl's nodes within the lower thoracic and upper lumbar vertebral endplates representing no change. No fracture or AP subluxation is seen. Bone marrow signal appears unremarkable. The disc heights are well-preserved and reveal unremarkable signal intensity. The spinal cord terminates at the upper aspect of L2. I see no definite disc herniation or central lumbar canal stenosis within the upper lumbar spine. The upper lateral neural foramen appear unremarkable on the sagittal images. At L3-L4, the disc and thecal sac appear unremarkable. No focal disc herniation or central canal stenosis is seen. The neural foramen are open bilaterally. The posterior ligamentum flavum and facet joints appear unremarkable. At L4-L5, the disc and thecal sac appear unremarkable. No focal disc herniation or central canal spinal stenosis is seen. The neural foramen are open bilaterally. There is minor hypertrophic degenerative change of the L4-L5 facet joints. At L5-S1, the disc and thecal sac appear unremarkable. No focal disc herniation or central canal spinal stenosis is seen. The lateral neural foramen are open bilaterally. There is minimal hypertrophic degenerative change of the left L5-S1 facet joint. The post-Magnevist axial and sagittal images reveal no abnormal enhancement. There is no evidence of vertebral osteomyelitis or epidural abscess. Impression: 1. The MRI of the lumbar spine without and with IV contrast reveals no significant abnormality representing no change from 04/23/2016. Incidental note of minimal/mild lower lumbar facet joint arthropathy and some small incidental Schmorl's nodes within the lower thoracic spine and upper lumbar spine are seen.
--- NOTE | 2017-07-25 15:12 | XRAY ---
Exam: CT of the neck with IV contrast from 07/24/2017. CTDI: 25.42 Comparison: None. Indication: 22-year-old male with throat pain/sore throat, fever, neck pain. Technique: Multiple post IV contrast axial images were obtained through the neck during and following automated injection of 60 ML's of Isovue 370 contrast material. Reconstructed coronal and sagittal images were created and reviewed. Findings: I note some minor peripheral mucosal thickening within the posterior aspect of the maxillary sinuses, right greater than left. No air-fluid levels are seen within the maxillary sinuses. The posterior nasopharynx appears unremarkable. The base of the tongue appears normal. The tonsillar pillars are mildly prominent, but no abscess is seen. The epiglottis appears of normal thickness. The prevertebral soft tissues appear unremarkable. The vessels enhance well. Mildly enlarged level IIA carotid space lymph nodes are seen without evidence of lymph node necrosis. No other cervical lymphadenopathy is seen. The visualized lower aspect of the parotid glands appears unremarkable. The submandibular glands appear normal. No other neck mass is seen. The thyroid gland enhances uniformly and appears of normal size without thyroid nodules. The thoracic inlet appears unremarkable. The visualized lung apices appear clear. There is a suggestion of a small amount of fluid within the superior pericardial recess on the most inferior image. Significance of this is uncertain. Correlate clinically regarding the need for an echocardiogram. The heart size does not appear enlarged on the chest film from 07/24/2017. I again see a significant upper thoracic rotary dextroscoliosis. No acute fracture or bone destruction is seen. Impression: 1. Mild bilateral palatine tonsillar prominence. No tonsillar or peritonsillar abscess is seen. I do note some prominent carotid space level IIA nodes on each side of midline without lymph node necrosis. No abnormal fluid collection is seen. 2. Minor mucosal thickening is seen at the inferior margin of both maxillary sinuses, right greater than left. No air-fluid levels are seen. 3. On the most inferior image within the chest, there appears to be some fluid within the superior pericardial recess. Significance of this is uncertain. Consider the clinical need for further evaluation with an echocardiogram. 4. The remainder of the CT of the neck appears unremarkable.
--- NOTE | 2017-07-25 17:40 | XRAY ---
Exam: CT of the abdomen and pelvis without IV contrast from 5 hrs. on 07/24/2017. CTDI: 17.24 Comparison: CT of the abdomen and pelvis without IV contrast from 0337 hours on 07/24/2017. Indication: 22-year-old male who complains of low back pain and right-sided abdominal pain radiating to flank, nausea. Technique: Non-IV contrast axial images were obtained through the abdomen and pelvis. Reconstructed coronal and sagittal images were created and reviewed. No oral contrast was given. Findings: Convexity of the mid thoracic spine toward the right is seen at the superior margin of the AP music director image. The lung bases are essentially clear. I again see a small subpleural calcification at the posterior medial left lung base. Evaluation of the solid organs is mildly limited without the use of IV contrast. The liver appears of unremarkable size and reveals no other gross abnormality. The gallbladder currently appears mildly contracted. There is more fluid/secretions and food within the stomach lumen as compared to the earlier film from today. The spleen, pancreas, and adrenal glands appear unremarkable. I again see a punctate nonobstructing stone within the mid to lower pole of the right kidney. No other definite stones are seen within either kidney. I see no evidence of hydronephrosis. There is a paucity of intraperitoneal fat. This makes identification of the ureters throughout their course more difficult. I again identify a 3 mm punctate calcification at the posterior left lateral margin of the urinary bladder. This is unchanged. I'm not sure whether this represents a small calcification at the left ureterovesical junction or a calcification immediately adjacent to this site. I do not detect proximal hydroureter on the left. This calcification is new from the CT dated 03/20/2015. The abdominal aorta appears of normal diameter. No abnormal retroperitoneal lymphadenopathy is seen. Moderate colonic stool retention is seen without evidence of obstruction. I believe there is some fluid-filled distal small bowel within lower pelvis which displays some air-fluid levels. No free intraperitoneal air is seen. There is some fluid-filled small bowel within the pelvis. No bowel obstruction is seen. I see no definite findings to suggest appendicitis within the right lower quadrant. No enlarged pelvic lymph nodes are seen. I do note a small amount of free intraperitoneal fluid within the lower posterior pelvic midline. The amount of free fluid is greater than that seen on the exam from earlier today. The reason for this free fluid is not clear. The seminal vesicles and prostate gland appear unremarkable. The remainder of the urinary bladder is normal. The skeleton reveals no acute fracture or aggressive bone process. Impression: 1. Compared to the CT study from earlier today, there is more distention of the stomach with fluid/secretions or food. The gallbladder now appears contracted. 2. I believe there is a small amount of free intraperitoneal fluid within lower pelvic midline. This has increased slightly compared to the earlier CT study: from today. The reason for this is not clear. 3. I see no convincing findings of appendicitis within the right lower quadrant. 4. Nonobstructing punctate right renal stone is unchanged. Also, a 3 mm calcification at the posterior lateral margin of the urinary bladder on the left is unchanged. No definite hydroureter is seen proximal to this site. I'm not sure whether this lies within the left ureterovesical junction or immediately adjacent to this region. Correlate clinically. 5. Moderate scattered stool is seen within the colon. There is no evidence of bowel obstruction. I do note some mild air-fluid levels within the mid to lower pelvis within the small bowel. Correlate clinically regarding an ileus or enteritis. No free intraperitoneal air is seen..
[2017-07-26] MEDS: TYLENOL 325 MG PO PRN ×6 (00:11→22:19)
[2017-07-26] MEDS: MORPHINE SULFATE 4 MG INJ IV PRN ×6 (00:12→22:18)
[2017-07-26] MEDS: Zosyn 3.375GM/100 Ml D5W 3.375 GM/100 ML IVPB IV SCH ×5 (00:12→23:29)
[2017-07-26] MEDS: CHLORASEPTIC SPRAY 180 ML PO PRN ×4 (00:13→23:38)
[2017-07-26] MEDS: Sodium Chloride 0.9% 1000 ML 1,000 ML IV SCH ×2 (02:40→14:16)
[2017-07-26] MEDS: Zofran 4 MG/2 ML VIAL IV PRN ×2 (04:32→12:42)
[2017-07-26 05:59] LABS: BASOPHIL % 0.2 % (0.0-0.4); Basophil (Absolute #) 0.02 (0-0.4); Eosinophil % 0.6 % (0.00-5.0); Eosinophil (Absolute #) 0.06 (0-0.5); Granulocyte Absolute (ANC) 6.06 (1.4-6.9); Granulocytes % 59.4 % (36.0-66.0); Hematocrit 35.3 % (42-50); Hemoglobin 12.2 gm/dl (12.5-18.0); Lymphocyte (Absolute #) 2.27 (1.0-4.6); Lymphocytes % 22.3 % (24.0-44.0); Mean Cell Volume 98.1 fl (78-100); Mean Corpuscular Hgb Concent. 34.6 g/dl (32-36); Mean Platelet Volume 9.1 fl (6-9.5); Monocyte (Absolute #) 1.79 (0.0-1.3); Monocytes % 17.5 % (0.0-12.0); Platelet Count 206 K/mm3 (150-450); Red Cell Distribution Width 12.5 % (11.5-14.0); White Blood Count 10.2 K/mm3 (4.0-10.5)
[2017-07-26 06:11] LABS: ALBUMIN 2.8 g/dL (3.5-5.0); ALKALINE PHOSPHATASE 55 U/L (38-126); ANION GAP 6.5 MEQ/L (5-15); BLOOD UREA NITROGEN 6 mg/dL (9-20); CHLORIDE 108 mmol/L (98-107); Calcium 8.1 mg/dL (8.4-10.2); Carbon Dioxide 26 mmol/L (22-30); Creatinine 1 0.75 mg/dL (0.66-1.25); Glucose 104 mg/dL (74-106); Potassium 3.6 mmol/L (3.5-5.1); SGOT/AST 14 U/L (17-59); SGPT/ALT 16 U/L (0-50); SODIUM 136 mmol/L (137-145); Total Protein 5.5 g/dL (6.3-8.2)
[2017-07-26 06:23] LABS: Mean Corpuscular Hemoglobin 33.8 pg (26-32)
[2017-07-26 07:29] LABS: AMYLASE 32 U/L (30-110); LIPASE 10 U/L (23-300)
--- NOTE | 2017-07-26 08:27 | XRAY ---
Exam: Gallbladder ultrasound from 07/25/2017. Comparison: CT of the abdomen and pelvis without IV contrast from 07/24/2017. Indication: Abdominal pain, hepatitis C, fever. Findings: The body and head of the pancreas appear unremarkable. The pancreatic tail is not well seen due to overlying bowel gas. The liver appears of unremarkable size. No focal hepatic mass or biliary duct distention is seen. Normal blood flow towards the liver is seen within the portal vein. The gallbladder is distended and reveals no intraluminal stones or significant biliary sludge. The gallbladder wall measures 1.9 mm in thickness which is normal. No pericholecystic edema or fluid is seen. The proximal common bile duct measures 3.6 mm which is normal. No free fluid is seen within the right upper quadrant. The right kidney measures 9.51 cm in length and reveals no hydronephrosis or definite mass. Prior punctate nonobstructing stone within the middle third of the right kidney on CT study of 07/24/2017 is unable to be detected on today's ultrasound. CT is more sensitive for evaluation of this regard. Impression: 1. I see no findings of cholelithiasis, abnormal gallbladder enlargement, gallbladder wall thickening, or biliary duct distention. The remainder of the right upper quadrant abdominal ultrasound appears essentially unremarkable.
[2017-07-26] MEDS: Nicoderm CQ 21 MG TOP SCH (08:35)
[2017-07-26] MEDS: Paxil 20 MG PO SCH (09:53)
[2017-07-26] MEDS: Bactroban OINTMENT TP SCH ×3 (09:53→22:14)
[2017-07-26 14:11] LABS: Slide Review 1 YES
[2017-07-27] MEDS: MORPHINE SULFATE 4 MG INJ IV PRN ×3 (02:12→12:04)
[2017-07-27] MEDS: Sodium Chloride 0.9% 1000 ML 1,000 ML IV SCH (02:13)
[2017-07-27] MEDS: TYLENOL 325 MG PO PRN (02:16)
[2017-07-27 05:33] LABS: BASOPHIL % 0.3 % (0.0-0.4); Basophil (Absolute #) 0.02 (0-0.4); Eosinophil % 2.3 % (0.00-5.0); Eosinophil (Absolute #) 0.14 (0-0.5); Granulocyte Absolute (ANC) 2.21 (1.4-6.9); Granulocytes % 36.5 % (36.0-66.0); Hemoglobin 12.3 gm/dl (12.5-18.0); Lymphocyte (Absolute #) 2.43 (1.0-4.6); Mean Cell Volume 97.3 fl (78-100); Mean Corpuscular Hemoglobin 33.2 pg (26-32); Mean Corpuscular Hgb Concent. 34.2 g/dl (32-36); Monocyte (Absolute #) 1.27 (0.0-1.3); Monocytes % 20.9 % (0.0-12.0); Platelet Count 224 K/mm3 (150-450); Red Cell Distribution Width 12.6 % (11.5-14.0); White Blood Count 6.1 K/mm3 (4.0-10.5)
[2017-07-27 05:52] LABS: ALBUMIN 2.8 g/dL (3.5-5.0); ALKALINE PHOSPHATASE 56 U/L (38-126); BLOOD UREA NITROGEN 5 mg/dL (9-20); CHLORIDE 109 mmol/L (98-107); Calcium 8.3 mg/dL (8.4-10.2); Carbon Dioxide 28 mmol/L (22-30); Creatinine 1 0.72 mg/dL (0.66-1.25); Glucose 97 mg/dL (74-106); Potassium 3.7 mmol/L (3.5-5.1); SGOT/AST 32 U/L (17-59); SGPT/ALT 26 U/L (0-50); SODIUM 140 mmol/L (137-145); Total Protein 5.5 g/dL (6.3-8.2)
[2017-07-27] MEDS: Zosyn 3.375GM/100 Ml D5W 3.375 GM/100 ML IVPB IV SCH ×2 (06:07→11:26)
[2017-07-27] MEDS: Nicoderm CQ 21 MG TOP SCH (08:03)
[2017-07-27] MEDS: CHLORASEPTIC SPRAY 180 ML PO PRN (08:03)
[2017-07-27] MEDS: Paxil 20 MG PO SCH (09:54)
[2017-07-27] MEDS: Bactroban OINTMENT TP SCH ×2 (09:55→14:40)
[2017-07-27] MEDS ORDERED: MORPHINE SULFATE 4 MG INJ IV PRN (12:27)
--- NOTE | 2017-07-27 12:37 | PCM.DS ---
Discharge Summary Date of Admission: 07/25/17 08:00 Admitting Physician: CARLITOS BRONSON Consults: Consults on Case 07/25/17 08:43 Consult Surgery ROUTINE Primary Care Provider: CARLITOS BRONSON Allergies Allergies No Known Drug Allergies Allergy (Verified 07/24/17 19:38) Hospital Summary - Hospital Course Hospital Course: Pt came in to ER with abdominal pain in RUQ, sore throat/neck pain, and fever of 102.9. He was admitted for further workup. Of note, in the past few weeks prior to admission he had been taken to with methamphetamine overdose and was actually coded there. Afterward he developed RUQ pain, was noted to have a R kidney stone in the UPJ which passed apparently. Initial WBC 11.4, lactic acid 2.7 (decreased rapidly after admission with IV fluids). BUN/cr 9 and 0.93. K+ at admission 3.2. Lipase, AST, ALT, and alk phos nl on admission. Pt had a CT abd/pelvis at admission that showed possible gallbladder sludge. u/ s on 07/25 of gallbladder wtih no enlargement, thickening, or chlelithiasis; no biliary duct distention. CT neck with contrast showed mild palatine tonsillar prominence (noted prominent carotid space level IIA nodes bilaterally without necrosis) and mild mucosal thicekning in maxillary sinuses. Strep swab was negative. Monospot negative. CXR negative for acute changes. MRI L-spine with and without contrast with minor degenerative change, nothing acute. MRI T-spine without acute changes; dextroscoliosis present. Surgery consult was done and they opted for no surgery at this time. Recommended if still having pain next week, get a HIDA scan. Pt has been on zosyn (day #3) and has been afebrile for the past 24 hours. He has tolerated a liquid diet and would like to eat more. his pain is down to 5/ 10. If he tolerates po well, will send him home on augmentin this evening. Follow up with Dr. Bronson next week. - Vitals & Intake/Output Vital Signs: Vital Signs Temperature 98.7 F 07/27/17 12:00 Pulse Rate 55 L 07/27/17 12:00 Respiratory Rate 17 07/27/17 12:00 Blood Pressure 127/84 07/27/17 12:00 O2 Sat by Pulse Oximetry 94 L 07/27/17 12:00 Intake & Output: Intake & Output 07/25/17 07/26/17 07/27/17 07/28/17 11:59 11:59 11:59 11:59 Intake Total 0 3520 4243 Output Total 2150 2750 Balance 0 1370 1493 Weight 75.8 kg - Lab Result Diagrams: 07/27/17 05:15 07/27/17 05:15 Lab Results-Last 24 Hrs: Lab Results-Last 24 Hours 07/26/17 07/27/17 07/27/17 Range/Units 05:35 05:15 05:15 WBC 6.1 (4.0-10.5) K/mm3 RBC 3.70 L (4.1-5.6) M/mm3 Hgb 12.3 L (12.5-18.0) gm/dl Hct 36.0 L (42-50) % MCV 97.3 (78-100) fl MCH 33.2 H (26-32) pg MCHC 34.2 (32-36) g/dl RDW 12.6 (11.5-14.0) % Plt Count 224 (150-450) K/mm3 MPV 9.0 (6-9.5) fl Gran % 36.5 (36.0-66.0) % Eos # (Auto) 0.14 (0-0.5) Absolute Lymphs (auto) 2.43 (1.0-4.6) Absolute Monos (auto) 1.27 (0.0-1.3) Lymphocytes % 40.0 (24.0-44.0) % Monocytes % 20.9 H (0.0-12.0) % Eosinophils % 2.3 (0.00-5.0) % Basophils % 0.3 (0.0-0.4) % Absolute Granulocytes 2.21 (1.4-6.9) Basophils # 0.02 (0-0.4) Sodium 140 (137-145) mmol/L Potassium 3.7 (3.5-5.1) mmol/L Chloride 109 H (98-107) mmol/L Carbon Dioxide 28 (22-30) mmol/L Anion Gap 7.0 (5-15) MEQ/L BUN 5 L (9-20) mg/dL Creatinine 0.72 (0.66-1.25) mg/dL Estimated GFR > 60.0 ML/MIN Glucose 97 (74-106) mg/dL Calcium 8.3 L (8.4-10.2) mg/dL Total Bilirubin 0.40 (0.2-1.3) mg/dL AST 32 (17-59) U/L ALT 26 (0-50) U/L Alkaline Phosphatase 56 (38-126) U/L Serum Total Protein 5.5 L (6.3-8.2) g/dL Albumin 2.8 L (3.5-5.0) g/dL Slides for Path Review YES Discharge Exam General Appearance: no apparent distress, alert, other (extensive tattoos) Neurologic Exam: 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, cooperative Skin Exam: normal color, warm, dry, No rash Ears, Nose, Throat Exam: moist mucous membranes Neck Exam: normal inspection Respiratory Exam: normal breath sounds, lungs clear, No crackles/rales, No rhonchi, No wheezing Cardiovascular Exam: normal heart sounds, irregular (occ extra beat; regular rate), No murmur Gastrointestinal/Abdomen Exam: soft, normal bowel sounds, tenderness (mild in epigastrum/RUQ), No distention, No mass, No guarding, No rebound Extremity Exam: No pedal edema, No swelling Final Diagnosis/Problem List - Final Discharge Diagnosis/Problem (1) Abdominal pain Current Visit: Yes Status: Acute Onset Date: ~07/24/17 Assessment & Plan: Unsure etiology. Certainly his tenderness is clinically concerning for gallbladder disease. Surgery recommended HIDA scan next week so that is being ordered. Home on cipro (pt was supposed to start taking previously; would encourage him to fill this). (2) Fever Current Visit: Yes Status: Resolved Onset Date: ~07/24/17 Assessment & Plan: Unknown etiology, but will continue to finish a 10d course of abx (total). (3) Scoliosis Current Visit: No Status: Chronic - Discharge Disposition: Home, Self-Care Condition: Stable Prescriptions: New Mupirocin [Bactroban OINTMENT] 1 gm TP TID #1 tube Continue Paroxetine HCl [Paxil] 20 mg PO DAILY Ciprofloxacin [Cipro 500 MG] 1 tab PO BID #14 tablet Naproxen 500 mg PO BID PRN #30 tablet. Ibuprofen 200 mg [Motrin 200 mg] 400 mg PO Q6H PRN PRN PRN Reason: Pain Follow up with: CARLITOS BRONSON [Primary Care Provider] - 08/05/17 10:30 am
[2017-07-27 17:42] VITALS: BP 116/79; PULSE 54; O2SAT 98
--- NOTE | 2017-07-29 09:23 | CONS ---
CONSULT DATE: 07/26/2017 REASON FOR CONSULT: Abdominal pain. HISTORY: This patient presents with several days of right upper quadrant abdominal pain and a fever. He has been admitted for a couple of days. Yesterday he had a fever up to 102F. Today, he has been less febrile. He is receiving Tylenol quite frequently though. He recently did have a methamphetamine overdose and was treated at [facility] which required CPR. On CT scan he does have a small nonobstructing renal stone. His white blood cell 10.2, hemoglobin 12.2, PLT 206,000. Lipase within normal limits. Bilirubin and liver function tests were within normal limits with bilirubin of 0.5, alkaline phosphatase 58. His international normalized ratio was slightly elevated at 1.27. The patient has also had nausea and vomiting with his right upper quadrant pain. PAST MEDICAL HISTORY: Methamphetamine overdose. MEDICATIONS: Reviewed through APR. ALLERGIES: NKDA. SOCIAL HISTORY: Drug abuse. FAMILY HISTORY: None. PHYSICAL EXAMINATION: GENERAL: Slightly uncomfortable appearing. HEENT: Sclera nonicteric. Extraocular movements intact. NECK: Supple. No JVD. CHEST: Nonlabored breathing. No crepitus. ABDOMEN: Soft, nondistended, tender to palpation right upper quadrant and right lower quadrant. There is some diffuse peritonitis. SKIN: Warm, dry and intact. NEURO: Awake, alert and oriented. PSYCH: Appropriate mood and affect. ASSESSMENT AND PLAN: Abdominal pain and fever. Gallbladder ultrasound was within normal limits. CT scan also showed no obvious source for his abdominal pain. His pain could be from the small kidney stone however it appears nonobstructing so that seems less likely. His pain could also be from some sort of viral infection. No clear course at this time. However the patient is nontoxic and there does not appear to be any need for urgent surgical intervention.
== END 2017-07-27 17:55 | disposition home or self-care (01) | DRG 392 ==
LOC: ED 19:06 → MED SURG 23:51 → OBSVTOIN 07-25 08:00
PROVIDERS: ADMIT Family Medicine; ATTEND Family Medicine
DX: R10.11 Right upper quadrant pain (principal); R50.9 Fever, unspecified; M41.9 Scoliosis, unspecified; Z87.442 Personal history of urinary calculi
CPT/HCPCS: 36000; 36415; 70491; 71046; 72157; 72158; 74176; 76705; 80048; 80053; 80307; 81000; 81002; 82150; 83605; 83690; 85025; 85610; 86308; 87040; 87070; 87086; 87430; 93005; 96360; 96365; 96368; 96372; 96374; 96375; 99284; 99285; J0696; J1170; J1885; J2270; J2405; J2543; J2550; J3370; A9270-GY

== ENCOUNTER 2017-12-04 22:59 | Emergency (ER) | payer SELFPAY ==
[2017-12-04 23:21] VITALS: O2SAT 100
--- NOTE | 2017-12-04 23:34 | ERPHSYRPT ---
- History of Present Illness Time Seen by Provider: 12/04/17 23:15 Source: patient Exam Limitations: clinical condition Patient Subjective Stated Complaint: PT STATES HE WAS GIVEN A "INSPECTOR CLIP ON SUNGLASSES" OF METHAMPHETAMINE AND ANOTHER DILUTANT APPROX 3 WEEKS AGO; IMMEDIATELY STARTED VOMITING WHAT APPEARED TO BE BLOOD TINGED EMESIS; PT HAS BEEN VOMITING NUMEROUS TIMES A DAY SINCE ONSET; ALSO CO PAIN ACROSS LOWER BACK AND IN ABDOMEN; UNABLE TO URINATE MORE THAN ONCE OR TWICE DAILY AND UNABLE TO KEEP ANYTHING DOWN; THIS PM PT STATES HE SELF-INFLICTED 4 MINOR ABRASIONS TO LEFT FOREARM, STATES HE WAS NOT TRYING TO KILL HIMSELF BUT WANTED IT TO BE A CRY FOR HELP SO HE IS ABLE TO GET OFF DRUGS. Triage Nursing Assessment: PT A&O X3; SKIN P, W, & D; MINOR ABRASIONS TO LEFT WRIST, NO BLEEDING UPON ARRIVAL; PT VERY COOPERATIVE AND ADVISES HE SIMPLY WANTS HELP WITH DRUG ADDICTION AND IS WORRIED ABOUT THE "INSPECTOR CLIP ON SUNGLASSES" HE RECIEVED 3 WEEKS AGO AND WHAT EFFECTS IT IS HAVING ON HIS BODY AT THIS TIME. Physician History: PATIENT WITH A HISTORY OF DEPRESSION, POLYSUBSTANCE ABUSE, METHAMPHETAMINE AND MARIJUANA COMPLAINS OF FEELING DEPRESSED, HE CUT HIS LEFT FOREARM SUPERFICIALLY WITH KNIFE, HE STATES ACTING OUT. DENIES SUICIDAL THOUGHTS. REQUESTING TREATMENT FOR HIS DEPRESSION AND SUBSTANCE ABUSE. HAS NO THOUGHTS OF SUICIDE OR WELL THOUGHT OUT PLAN. HAS HISTORY OF KIDNEY STONES, COMPLAINS OF BILATERAL FLANK PAIN. DENIES URINARY SYMPTOMS, FEVER, CHILLS, DYSPNEA OR COUGH. DENIES INGESTION OF STREET DRUGS FOR 1 WEEK. Timing/Duration: week(s) Severity of Symptoms-Max: mild Severity of Symptoms-Current: mild Context related to: other (STATES HE IS HOMELESS) Associated Symptoms: depressed, frustrated Previous symptoms: same symptoms as today Allergies/Adverse Reactions: No Known Drug Allergies Allergy (Verified 12/04/17 23:21) Home Medications: Quetiapine Fumarate [Seroquel Xr] 200 mg PO DAILY 12/04/17 [History] Hx Tetanus, Diphtheria Vaccination/Date Given: Yes Hx Influenza Vaccination/Date Given: No Hx Pneumococcal Vaccination/Date Given: No Immunizations Up to Date: No - Past Medical History Pertinent Past Medical History: Yes Neurological History: No Pertinent History ENT History: No Pertinent History Cardiac History: Arrhythmia Respiratory History: No Pertinent History Endocrine Medical History: No Pertinent History Musculoskeletal History: Other GI Medical History: No Pertinent History History: No Pertinent History Psycho-Social History: Anxiety, Depression Male Reproductive Disorders: No Pertinent History Other Medical History: scoliosis, Hep C, Meth overdose which [facility] Spinal Meningitis when - Past Surgical History Past Surgical History: Yes Neuro Surgical History: No Pertinent History Cardiac: No Pertinent History Respiratory: No Pertinent History Gastrointestinal: No Pertinent History Genitourinary: No Pertinent History Musculoskeletal: Orthopedic Surgery Male Surgical History: No Pertinent History Other Surgical History: right arm repair - Social History Smoking Status: Current every day smoker How long have you smoked: 15 YEARS Exposure to second hand smoke: Yes Drug Use: marijuana, methamphetamines Patient Lives Alone: No - Review of Systems Constitutional: No Fever, No Chills Eyes: No Symptoms Ears, Nose, & Throat: No Symptoms Respiratory: No Symptoms, No Cough, No Dyspnea Cardiac: No Symptoms, No Chest Pain, No Edema, No Syncope Abdominal/Gastrointestinal: No Abdominal Pain, No Nausea, No Vomiting, No Diarrhea Genitourinary Symptoms: Flank Pain, No Dysuria Musculoskeletal: No Back Pain, No Neck Pain Skin: No Rash Neurological: No Dizziness, No Focal Weakness, No Sensory Changes Psychological: No Symptoms Endocrine: No Symptoms All Other Systems: Reviewed and Negative - Nursing Vital Signs Nursing Vital Signs: Initial Vital Signs Temperature 98.4 F 12/04/17 23:06 Pulse Rate 107 H 12/04/17 23:06 Respiratory Rate 20 12/04/17 23:06 Blood Pressure 145/94 12/04/17 23:06 O2 Sat by Pulse Oximetry 100 12/04/17 23:06 Pain Scale Pain Intensity 7 - Physical Exam General Appearance: no apparent distress Eyes, Ears, Nose, Throat Exam: normal ENT inspection, moist mucous membranes Neck Exam: normal inspection, non-tender, supple Respiratory Exam: normal breath sounds, lungs clear, No respiratory distress Cardiovascular Exam: regular rate/rhythm, No edema Gastrointestinal/Abdominal Exam: soft, normal bowel sounds (NONTENDER), No tenderness, No distention Extremities Exam: normal range of motion, other (THERE IS SUPER FICIAL ABRASIONS LEFT MID TO DISTAL VOLAR ASPECT 4CM X 3), No evidence of injury, No edema Peripheral Pulses: carotid (R): 2+, carotid (L): 2+, femoral (R): 2+, femoral (L ): 2+, dorsalis-pedis (R): 2+, dorsalis-pedis (L): 2+ Current Suicidality: denies suicide plan Neurological Exam: alert, ore puncher II-XII nml as tested, 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 Appearance: appropriate appearance, appropriate insight Behavior/Eye Contact/Speech: alert & cooperative, cooperative (HAS NORMAL THOUGHT CONTENT ) Skin Exam: normal color, warm, dry, No rash SpO2 Interpretation: normal SpO2: 100 Oxygen Delivery: Room Air - CT Exams Abdomen/Pelvis CT Interpretation: Tele-radiologist Report (THERE IS PUNCTATE NONOBSTRUCTING RIGHT NEPHROLITHIASIS) Ordered Tests: Active Orders 24 hr Category Date Time Status IV Insertion STAT Care 12/04/17 23:37 Active ABDOMEN AND PELVIS W/0 CONTRAS [CT] Stat Exams 12/04/17 23:34 Taken BLOOD CULTURE Stat Lab 12/04/17 23:45 Received CBC W DIFF Stat Lab 12/04/17 23:45 Completed CMP Stat Lab 12/04/17 23:45 Completed ETHYL ALCOHOL Stat Lab 12/04/17 23:45 Completed Lactic Acid Stat Lab 12/04/17 23:45 Completed Urine Triage Profile Stat Lab 12/04/17 23:24 Uncollected Medication Summary Generic Name Dose Route Start Last Admin Trade Name Freq PRN Reason Stop Dose Admin Sodium Chloride 1,000 mls @ 999 mls/hr 12/05/17 01:14 12/05/17 01:15 Sodium Chloride 0.9% 1000 Ml IV 12/05/17 02:14 999 mls/hr .Q1H1M STA Administration Discontinued Medications Generic Name Dose Route Start Last Admin Trade Name Freq PRN Reason Stop Dose Admin Acetaminophen 650 mg 12/05/17 01:04 12/05/17 01:07 Tylenol 325 Mg PO 12/05/17 01:05 650 mg STAT STA Administration Acetaminophen Confirm 12/05/17 01:03 Tylenol 325 Mg Administered 12/05/17 01:04 Dose 650 mg .ROUTE .STK-MED ONE Sodium Chloride 1,000 mls @ 999 mls/hr 12/04/17 23:37 12/05/17 01:07 Sodium Chloride 0.9% 1000 Ml IV 12/05/17 00:37 Infused .Q1H1M STA Infusion Sodium Chloride Confirm 12/04/17 23:42 Sodium Chloride 0.9% 1000 Ml Administered 12/04/17 23:43 Dose 1,000 mls @ ud .ROUTE .STK-MED ONE Sodium Chloride Confirm 12/05/17 01:03 Sodium Chloride 0.9% 1000 Ml Administered 12/05/17 01:04 Dose 1,000 mls @ ud .ROUTE .STK-MED ONE Lab/Rad Data: Laboratory Result Diagrams 12/04/17 23:45 12/04/17 23:45 Laboratory Results 12/04/17 12/04/17 12/04/17 Range/Units 23:45 23:45 23:45 WBC 8.4 (4.0-10.5) K/mm3 RBC 4.31 (4.1-5.6) M/mm3 Hgb 14.1 (12.5-18.0) gm/dl Hct 41.3 L (42-50) % MCV 95.8 (78-100) fl MCH 32.7 H (26-32) pg MCHC 34.1 (32-36) g/dl RDW 12.4 (11.5-14.0) % Plt Count 270 (150-450) K/mm3 MPV 8.8 (6-9.5) fl Gran % 36.9 (36.0-66.0) % Eos # (Auto) 0.22 (0-0.5) Absolute Lymphs (auto) 4.38 (1.0-4.6) Absolute Monos (auto) 0.70 (0.0-1.3) Lymphocytes % 52.0 H (24.0-44.0) % Monocytes % 8.3 (0.0-12.0) % Eosinophils % 2.6 (0.00-5.0) % Basophils % 0.2 (0.0-0.4) % Absolute Granulocytes 3.11 (1.4-6.9) Basophils # 0.02 (0-0.4) Sodium 140 (137-145) mmol/L Potassium 4.1 (3.5-5.1) mmol/L Chloride 104 (98-107) mmol/L Carbon Dioxide 28 (22-30) mmol/L Anion Gap 12.8 (5-15) MEQ/L BUN 18 (9-20) mg/dL Creatinine 0.91 (0.66-1.25) mg/dL Estimated GFR > 60.0 ML/MIN Glucose 110 H (74-106) mg/dL Lactic Acid 1.1 (0.4-2.0) Calcium 8.8 (8.4-10.2) mg/dL Total Bilirubin 0.40 (0.2-1.3) mg/dL AST 22 (17-59) U/L ALT 27 (0-50) U/L Alkaline Phosphatase 78 (38-126) U/L Serum Total Protein 6.5 (6.3-8.2) g/dL Albumin 3.7 (3.5-5.0) g/dL Ethyl Alcohol < 10 (0-10) mg/dL - Progress Progress: pain not gone completely Progress Note: 12/05/17 01:22 TYLENOL 650 MG ORALLY Counseled pt/family regarding: lab results, diagnosis, need for follow-up, rad results - Departure Time of Disposition: 01:30 Departure Disposition: Home Clinical Impression: DEPRESSION, LEFT FOREARM ABRASIONS/SELF INFLICTED, RIGHT RENAL MICROCALCULI Condition: Stable Critical Care Time: No Referrals: CARLITOS DEJESUS [Primary Care Provider] - Additional Instructions: FOLLOW WITH [facility] TODAY FOR COUNSELING . FOLLOWUP WITH DR DEJESUS TODAY FOR EVALUATION. ANTIBIOTIC KEFLEX 500MG EVERY 8 HOURS FOR 10 DAYS. TYLENOL EVERY 4 HOURS FOR PAIN NEEDED. STRAIN URINE WITH STRAINER FOR 3 DAYS. WATCH FOR SIGNS OF INFECTION, REDNESS, SWELLING OR DRAINAGE. CLEANSE FOREARM ABRASIONS WITH SOAP AND WATER 2-3 TIMES DAILY. Prescriptions: Cephalexin Mh 500 mg [Keflex 500 mg] 500 mg PO TID #30 capsule
[2017-12-04] MEDS ORDERED: Sodium Chloride 0.9% 1000 ML 1,000 ML IV STA (23:37)
[2017-12-04] MEDS ORDERED: Sodium Chloride 0.9% 1000 ML 1,000 ML ONE (23:42)
[2017-12-04 23:49] LABS: BASOPHIL % 0.2 % (0.0-0.4); Basophil (Absolute #) 0.02 (0-0.4); Eosinophil % 2.6 % (0.00-5.0); Eosinophil (Absolute #) 0.22 (0-0.5); Granulocyte Absolute (ANC) 3.11 (1.4-6.9); Granulocytes % 36.9 % (36.0-66.0); Hematocrit 41.3 % (42-50); Hemoglobin 14.1 gm/dl (12.5-18.0); Lymphocyte (Absolute #) 4.38 (1.0-4.6); Mean Cell Volume 95.8 fl (78-100); Mean Corpuscular Hemoglobin 32.7 pg (26-32); Mean Corpuscular Hgb Concent. 34.1 g/dl (32-36); Mean Platelet Volume 8.8 fl (6-9.5); Monocytes % 8.3 % (0.0-12.0); Platelet Count 270 K/mm3 (150-450); Red Blood Count 4.31 M/mm3 (4.1-5.6); Red Cell Distribution Width 12.4 % (11.5-14.0); White Blood Count 8.4 K/mm3 (4.0-10.5)
[2017-12-05 00:06] LABS: ALBUMIN 3.7 g/dL (3.5-5.0); ALKALINE PHOSPHATASE 78 U/L (38-126); ANION GAP 12.8 MEQ/L (5-15); BLOOD UREA NITROGEN 18 mg/dL (9-20); CHLORIDE 104 mmol/L (98-107); Calcium 8.8 mg/dL (8.4-10.2); Carbon Dioxide 28 mmol/L (22-30); Creatinine 1 0.91 mg/dL (0.66-1.25); Glucose 110 mg/dL (74-106); Potassium 4.1 mmol/L (3.5-5.1); SGOT/AST 22 U/L (17-59); SGPT/ALT 27 U/L (0-50); SODIUM 140 mmol/L (137-145); Total Protein 6.5 g/dL (6.3-8.2)
[2017-12-05 00:08] LABS: ETHYL ALCOHOL < 10 mg/dL (0-10)
[2017-12-05] MEDS ORDERED: Sodium Chloride 0.9% 1000 ML 1,000 ML ONE (01:03)
[2017-12-05] MEDS ORDERED: TYLENOL 325 MG ONE (01:03)
[2017-12-05] MEDS ORDERED: TYLENOL 325 MG PO STA (01:04)
[2017-12-05] MEDS ORDERED: Sodium Chloride 0.9% 1000 ML 1,000 ML IV STA (01:14)
[2017-12-05 01:40] VITALS: BP 114/70; PULSE 75
[2017-12-05 01:44] LABS: Amphetamine,Urine NEGATIVE (NEGATIVE); Barbiturate,Urine NEGATIVE (NEGATIVE); Benzodiazepine,Urine NEGATIVE (NEGATIVE); Cocaine,Urine NEGATIVE (NEGATIVE); Methadone,Urine NEGATIVE (NEGATIVE); Opiate,Urine NEGATIVE (NEGATIVE); PCP,Urine NEGATIVE (NEGATIVE); THC,Urine POSITIVE (NEGATIVE)
--- NOTE | 2017-12-05 09:03 | XRAY ---
Indication: Bilateral flank pain and difficulty urinating. Vomiting blood. History stones. Multiple contiguous axial images obtained through the abdomen and pelvis without contrast using renal stone protocol. Comparison: July 24, 2017. Lung bases clear. Heart is not enlarged. Right kidney now demonstrates 2 nonobstructing punctate calculi, previously numbering 1. No renal calculus or evidence for obstructive uropathy on the left. Stomach is again distended with food/fluid. Noncontrasted stomach and bowel loops appear nonobstructed. Normal appendix. Again moderate diffuse scattered colonic fecal debris throughout. Gallbladder contracted without gallstones. No free fluid/air. Remaining liver, pancreas, spleen, adrenal glands, kidneys, ureters, bladder, and aorta appear unremarkable for noncontrast exam. Osseous structures intact. No ventral or inguinal hernias. Impression: 1. Again nonobstructing right renal micro-calculi. 2. Again fecal stasis without obstruction. 3. Remaining CT abdomen/pelvis without contrast exam is negative. Comment: Preliminary interpretation was made by [facility]. No critical discrepancy. CT DI 15.55
== END 2017-12-05 01:40 | disposition home or self-care (01) ==
LOC: ED 22:59
DX: F32.9 Major depressive disorder, single episode, unspecified (principal); R10.9 Unspecified abdominal pain; N20.0 Calculus of kidney; S50.812A Abrasion of left forearm, initial encounter; X78.1XXA Intentional self-harm by knife, initial encounter
CPT/HCPCS: 36415; 74176; 80053; 80307; 83605; 85025; 87040; 96360; 96361; 99284; A9270-GY; G0480

== ENCOUNTER 2017-12-24 20:41 | Emergency (ER) | payer OTHER ==
[2017-12-24 21:16] VITALS: O2SAT 100
[2017-12-24] MEDS ORDERED: Sodium Chloride 0.9% 1000 ML 1,000 ML IV STA (21:25)
[2017-12-24] MEDS ORDERED: Sodium Chloride 0.9% 1000 ML 1,000 ML ONE (21:27)
--- NOTE | 2017-12-24 21:32 | ERPHSYRPT ---
- History of Present Illness Time Seen by Provider: 12/24/17 21:21 Source: patient, old records Exam Limitations: no limitations Patient Subjective Stated Complaint: pt states he has been having palpitations intermittently for the last week. states he has been "feeling off" Triage Nursing Assessment: pt alert and oriented, answers questions approp. respirations nonlabored with lungs cta. heart rate 85 with frequent pvc's- pt states he has had pvc's since overdose at age 13. skin pink warm and dry. denies chest pain or pressure at this time. Physician History: Is a 22-year-old white male with history of arrhythmia, anxiety, depression, hepatitis C, methamphetamine use who apparently had a coated in the past secondary to his methamphetamine use and had seizures. Patient arrives with complaint of just feeling off symptoms since today he states he has had palpitations going on since he was 13 years old he states he notices these more last week. Patient states that he is wanting to get off his methamphetamine he has seen [facility] and he is going to have [facility] in 2 days. Past medical history includes anxiety, bipolar depression, hepatitis C, scoliosis, methamphetamine use the which has led to a seizure and being coded in the past Patient has a history of spinal meningitis as a child Past surgical history includes arm surgery social history includes tobacco use methamphetamine use patient denies alcohol use Timing/Duration: other (chronic PVCs palpitations for the last week, feels "off " today) Modifying Factors: Improves With: nothing (methamphetamine use 2 days ago) Associated Symptoms: malaise, other (Palpitations), No nausea, No vomiting, No abdominal pain, No shortness of breath, No heartburn, No diaphoresis, No cough, No chills, No chest pain, No fever, No headaches, No loss of appetite, No rash, No syncope, No seizure, No weakness Allergies/Adverse Reactions: No Known Drug Allergies Allergy (Verified 12/04/17 23:21) Home Medications: Quetiapine Fumarate [Seroquel Xr] 200 mg PO DAILY 12/04/17 [History] Hx Tetanus, Diphtheria Vaccination/Date Given: Yes (2015) Hx Influenza Vaccination/Date Given: No Hx Pneumococcal Vaccination/Date Given: No Immunizations Up to Date: Yes - Review of Systems Constitutional: No Fever, No Chills Eyes: No Symptoms Ears, Nose, & Throat: No Symptoms Respiratory: No Cough, No Dyspnea Cardiac: Palpitations, No Chest Pain, No Edema, No Syncope Abdominal/Gastrointestinal: No Abdominal Pain, No Nausea, No Vomiting, No Diarrhea Genitourinary Symptoms: No Dysuria Musculoskeletal: No Back Pain, No Neck Pain Skin: No Rash Neurological: No Dizziness, No Focal Weakness, No Sensory Changes Psychological: Drug Abuse, No Anxiety, No Depression, No Suicidal Ideations, No Homicidal Ideations Endocrine: No Symptoms All Other Systems: Reviewed and Negative - Past Medical History Pertinent Past Medical History: Yes Neurological History: No Pertinent History ENT History: No Pertinent History Cardiac History: Arrhythmia Respiratory History: No Pertinent History Endocrine Medical History: No Pertinent History Musculoskeletal History: Other GI Medical History: No Pertinent History History: No Pertinent History Psycho-Social History: Anxiety, Bipolar, Depression Male Reproductive Disorders: No Pertinent History Other Medical History: scoliosis, Hep C, Meth overdose which [facility] Spinal Meningitis when . kidney stones - Past Surgical History Past Surgical History: Yes Neuro Surgical History: No Pertinent History Cardiac: No Pertinent History Respiratory: No Pertinent History Gastrointestinal: No Pertinent History Genitourinary: No Pertinent History Musculoskeletal: Orthopedic Surgery Male Surgical History: No Pertinent History Other Surgical History: right arm repair - Social History Smoking Status: Current every day smoker How long have you smoked: 15 YEARS Exposure to second hand smoke: Yes Drug Use: methamphetamines Patient Lives Alone: No - Nursing Vital Signs Nursing Vital Signs: Initial Vital Signs Temperature 98.2 F 12/24/17 21:06 Pulse Rate 74 12/24/17 21:06 Respiratory Rate 18 12/24/17 21:06 Blood Pressure 133/82 12/24/17 21:06 O2 Sat by Pulse Oximetry 100 12/24/17 21:06 Pain Scale Pain Intensity 0 - Physical Exam General Appearance: no apparent distress, alert Eye Exam: PERRL/EOMI, eyes nml inspection Ears, Nose, Throat Exam: normal ENT inspection, TMs normal, pharynx normal, moist mucous membranes Neck Exam: normal inspection, non-tender, supple, full range of motion Respiratory Exam: normal breath sounds, lungs clear, No respiratory distress Cardiovascular Exam: capillary refill <2 sec, other (regular rhythm with occassional extra beat), No murmur, No friction rub, No gallop, No tachycardia, No bradycardia Gastrointestinal/Abdomen Exam: soft, normal bowel sounds, No tenderness, No mass Back Exam: normal inspection, normal range of motion, No CVA tenderness, No vertebral tenderness Extremity Exam: normal inspection, normal range of motion, pelvis stable Neurologic Exam: alert, 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, cooperative, intake man II-XII nml as tested, normal mood/affect, nml cerebellar function, nml station & gait, sensation nml, No motor deficits Skin Exam: normal color, warm, dry, No rash Lymphatic Exam: No adenopathy SpO2 Interpretation: normal (100%) SpO2: 100 Oxygen Delivery: Room Air - Course Nursing assessment & vital signs reviewed: Yes EKG Interpreted by Me: RATE (85 bpm), NORMAL AXIS, Other (EKG: Sinus arrhythmia with frequent PVCs, normal axis, no acute ST or T wave changes) Ordered Tests: Active Orders 24 hr Category Date Time Status EKG-ER Only STAT Care 12/24/17 21:25 Active IV Insertion STAT Care 12/24/17 21:25 Active ACETAMINOPHEN Stat Lab 12/24/17 21:04 Completed CBC W DIFF Stat Lab 12/24/17 21:04 Completed CMP Stat Lab 12/24/17 21:04 Completed ETHYL ALCOHOL Stat Lab 12/24/17 21:04 Completed SALICYLATE Stat Lab 12/24/17 21:04 Completed TROPONIN Q3H Lab 12/24/17 21:04 Completed TROPONIN Q3H Lab 12/25/17 00:30 Ordered TROPONIN Q3H Lab 12/25/17 03:30 Ordered TROPONIN Q3H Lab 12/25/17 06:30 Ordered TROPONIN Q3H Lab 12/25/17 09:30 Ordered UA W/RFX UR CULTURE Stat Lab 12/24/17 22:30 Completed Urine Triage Profile Stat Lab 12/24/17 22:30 Results Medication Summary Discontinued Medications Generic Name Dose Route Start Last Admin Trade Name Freq PRN Reason Stop Dose Admin Sodium Chloride 1,000 mls @ 999 mls/hr 12/24/17 21:25 12/24/17 21:29 Sodium Chloride 0.9% 1000 Ml IV 12/24/17 22:25 999 mls/hr .Q1H1M STA Administration Sodium Chloride Confirm 12/24/17 21:27 Sodium Chloride 0.9% 1000 Ml Administered 12/24/17 21:28 Dose 1,000 mls @ ud .ROUTE .[facility] Lab/Rad Data: Laboratory Result Diagrams 12/24/17 21:04 12/24/17 21:04 Laboratory Results 12/24/17 12/24/17 12/24/17 Range/Units 22:30 22:30 21:04 WBC (4.0-10.5) K/mm3 RBC (4.1-5.6) M/mm3 Hgb (12.5-18.0) gm/dl Hct (42-50) % MCV (78-100) fl MCH (26-32) pg MCHC (32-36) g/dl RDW (11.5-14.0) % Plt Count (150-450) K/mm3 MPV (6-9.5) fl Gran % (36.0-66.0) % Eos # (Auto) (0-0.5) Absolute Lymphs (auto) (1.0-4.6) Absolute Monos (auto) (0.0-1.3) Lymphocytes % (24.0-44.0) % Monocytes % (0.0-12.0) % Eosinophils % (0.00-5.0) % Basophils % (0.0-0.4) % Absolute Granulocytes (1.4-6.9) Basophils # (0-0.4) Sodium (137-145) mmol/L Potassium (3.5-5.1) mmol/L Chloride (98-107) mmol/L Carbon Dioxide (22-30) mmol/L Anion Gap (5-15) MEQ/L BUN (9-20) mg/dL Creatinine (0.66-1.25) mg/dL Estimated GFR ML/MIN Glucose (74-106) mg/dL Calcium (8.4-10.2) mg/dL Total Bilirubin (0.2-1.3) mg/dL AST (17-59) U/L ALT (0-50) U/L Alkaline Phosphatase (38-126) U/L Troponin I < 0.012 (0.000-0.034) ng/mL Serum Total Protein (6.3-8.2) g/dL Albumin (3.5-5.0) g/dL Urine Color YELLOW (YELLOW) Urine Appearance CLEAR (CLEAR) Urine pH 6.0 (5-6) Ur Specific [place] 1.018 (1.005-1.025) Urine Protein NEGATIVE (Negative) Urine Ketones NEGATIVE (NEGATIVE) Urine Blood NEGATIVE (0-5) Christian/ul Urine Nitrite NEGATIVE (NEGATIVE) Urine Bilirubin NEGATIVE (NEGATIVE) Urine Urobilinogen 4 (0-1) mg/dL Ur Leukocyte Esterase NEGATIVE (NEGATIVE) Urine WBC (Auto) 0-2 (0-5) /HPF U Epithel Cells (Auto) NONE SEEN (FEW) /HPF Urine Mucus (Auto) SLIGHT (NEGATIVE) /HPF Urine Culture Reflexed NO (NO) Urine Glucose NEGATIVE (NEGATIVE) mg/dL Salicylates (2-20) mg/dL Urine Opiates Level NEGATIVE (NEGATIVE) Ur Methadone NEGATIVE (NEGATIVE) Acetaminophen (10-30) ug/ml Urine Barbiturates NEGATIVE (NEGATIVE) Ur Phencyclidine (PCP) NEGATIVE (NEGATIVE) Urine Amphetamine Pending U Benzodiazepine Level NEGATIVE (NEGATIVE) Urine Cocaine NEGATIVE (NEGATIVE) Urine Marijuana (THC) POSITIVE (NEGATIVE) Ethyl Alcohol (0-10) mg/dL 12/24/17 12/24/17 Range/Units 21:04 21:04 WBC 6.8 (4.0-10.5) K/mm3 RBC 3.98 L (4.1-5.6) M/mm3 Hgb 13.1 (12.5-18.0) gm/dl Hct 39.3 L (42-50) % MCV 98.7 (78-100) fl MCH 32.9 H (26-32) pg MCHC 33.3 (32-36) g/dl RDW 12.8 (11.5-14.0) % Plt Count 309 (150-450) K/mm3 MPV 9.1 (6-9.5) fl Gran % 25.2 L (36.0-66.0) % Eos # (Auto) 0.36 (0-0.5) Absolute Lymphs (auto) 3.94 (1.0-4.6) Absolute Monos (auto) 0.75 (0.0-1.3) Lymphocytes % 58.1 H (24.0-44.0) % Monocytes % 11.1 (0.0-12.0) % Eosinophils % 5.3 H (0.00-5.0) % Basophils % 0.3 (0.0-0.4) % Absolute Granulocytes 1.71 (1.4-6.9) Basophils # 0.02 (0-0.4) Sodium 140 (137-145) mmol/L Potassium 4.4 (3.5-5.1) mmol/L Chloride 104 (98-107) mmol/L Carbon Dioxide 28 (22-30) mmol/L Anion Gap 12.4 (5-15) MEQ/L BUN 14 (9-20) mg/dL Creatinine 0.81 (0.66-1.25) mg/dL Estimated GFR > 60.0 ML/MIN Glucose 88 (74-106) mg/dL Calcium 9.0 (8.4-10.2) mg/dL Total Bilirubin 0.40 (0.2-1.3) mg/dL AST 18 (17-59) U/L ALT 23 (0-50) U/L Alkaline Phosphatase 88 (38-126) U/L Troponin I (0.000-0.034) ng/mL Serum Total Protein 6.6 (6.3-8.2) g/dL Albumin 3.9 (3.5-5.0) g/dL Urine Color (YELLOW) Urine Appearance (CLEAR) Urine pH (5-6) Ur Specific [place] (1.005-1.025) Urine Protein (Negative) Urine Ketones (NEGATIVE) Urine Blood (0-5) Christian/ul Urine Nitrite (NEGATIVE) Urine Bilirubin (NEGATIVE) Urine Urobilinogen (0-1) mg/dL Ur Leukocyte Esterase (NEGATIVE) Urine WBC (Auto) (0-5) /HPF U Epithel Cells (Auto) (FEW) /HPF Urine Mucus (Auto) (NEGATIVE) /HPF Urine Culture Reflexed (NO) Urine Glucose (NEGATIVE) mg/dL Salicylates < 1.0 L (2-20) mg/dL Urine Opiates Level (NEGATIVE) Ur Methadone (NEGATIVE) Acetaminophen < 10 L (10-30) ug/ml Urine Barbiturates (NEGATIVE) Ur Phencyclidine (PCP) (NEGATIVE) Urine Amphetamine U Benzodiazepine Level (NEGATIVE) Urine Cocaine (NEGATIVE) Urine Marijuana (THC) (NEGATIVE) Ethyl Alcohol < 10 (0-10) mg/dL - Progress Progress: improved Progress Note: 12/24/17 23:06 22-year-old white male who has a history of arrhythmia, anxiety, depression, scoliosis, hepatitis C, methamphetamine use who is apparently had seizures on methamphetamine and apparently had been coded because of methamphetamine in the past. Patient states he has had palpitations since he was 13. He states that he has been seen by [facility] as scheduled for admission to [facility] in 2 days for treatment of his substance abuse. Patient states that he just feels "off" he states he last used methamphetamines 2 days ago he denies any chest pain shortness of breath he is having palpitations. EKG on this patient shows sinus arrhythmia 85 bpm normal axis frequent PVCs occasional bigeminy. No acute ST or T wave changes. Patient's labs are remarkable for a normal troponin normal urinalysis white count 6.8 hemoglobin 13.1 hematocrit 39.3 Chemistry is normal Urine drug screen is positive for amphetamines and THC. Patient has been stable he has received 1 L of normal saline. I've discussed the case with Dr. Hardy ammunition supervisor for Dr. Mccauley. Will discharge patient. Patient to follow-up with [facility]. To return for acute distress or for severe symptoms. - Departure Time of Disposition: 23:09 Departure Disposition: Home Clinical Impression: Palpitations, Frequent PVCs Condition: Fair Critical Care Time: No Referrals: CARLITOS DEJESUS [ACTIVE STAFF] - Additional Instructions: Return home. Plenty of fluids. Avoid further methamphetamine or illicit drug use. Follow-up with [facility] as previously arranged. Follow-up with your family doctor. Return for acute distress or for severe symptoms.
[2017-12-24 21:39] LABS: BASOPHIL % 0.3 % (0.0-0.4); Basophil (Absolute #) 0.02 (0-0.4); Eosinophil % 5.3 % (0.00-5.0); Eosinophil (Absolute #) 0.36 (0-0.5); Granulocyte Absolute (ANC) 1.71 (1.4-6.9); Granulocytes % 25.2 % (36.0-66.0); Hematocrit 39.3 % (42-50); Hemoglobin 13.1 gm/dl (12.5-18.0); Lymphocyte (Absolute #) 3.94 (1.0-4.6); Lymphocytes % 58.1 % (24.0-44.0); Mean Cell Volume 98.7 fl (78-100); Mean Corpuscular Hemoglobin 32.9 pg (26-32); Mean Corpuscular Hgb Concent. 33.3 g/dl (32-36); Mean Platelet Volume 9.1 fl (6-9.5); Monocyte (Absolute #) 0.75 (0.0-1.3); Monocytes % 11.1 % (0.0-12.0); Platelet Count 309 K/mm3 (150-450); Red Blood Count 3.98 M/mm3 (4.1-5.6); Red Cell Distribution Width 12.8 % (11.5-14.0); White Blood Count 6.8 K/mm3 (4.0-10.5)
[2017-12-24 21:55] LABS: ALBUMIN 3.9 g/dL (3.5-5.0); ALKALINE PHOSPHATASE 88 U/L (38-126); ANION GAP 12.4 MEQ/L (5-15); BLOOD UREA NITROGEN 14 mg/dL (9-20); CHLORIDE 104 mmol/L (98-107); Carbon Dioxide 28 mmol/L (22-30); Creatinine 1 0.81 mg/dL (0.66-1.25); Glucose 88 mg/dL (74-106); Potassium 4.4 mmol/L (3.5-5.1); SGOT/AST 18 U/L (17-59); SGPT/ALT 23 U/L (0-50); SODIUM 140 mmol/L (137-145); Total Protein 6.6 g/dL (6.3-8.2)
[2017-12-24 21:57] LABS: ACETAMINOPHEN < 10 ug/ml (10-30); ETHYL ALCOHOL < 10 mg/dL (0-10); SALICYLATE < 1.0 mg/dL (2-20)
[2017-12-24 22:41] LABS: Appearance CLEAR (CLEAR); Bilirubin NEGATIVE (NEGATIVE); Blood NEGATIVE Ery/ul (0-5); Glucose NEGATIVE (NEGATIVE); Ketones NEGATIVE (NEGATIVE); Leukocyte Esterase NEGATIVE (NEGATIVE); Nitrite NEGATIVE (NEGATIVE); Protein,Urine Dip NEGATIVE (Negative); Specific Gravity 1.018 (1.005-1.025); Urobilinogen 4 mg/dL (0-1)
[2017-12-24 22:54] LABS: Barbiturate,Urine NEGATIVE (NEGATIVE); Benzodiazepine,Urine NEGATIVE (NEGATIVE); Cocaine,Urine NEGATIVE (NEGATIVE); Methadone,Urine NEGATIVE (NEGATIVE); Opiate,Urine NEGATIVE (NEGATIVE); PCP,Urine NEGATIVE (NEGATIVE); THC,Urine POSITIVE (NEGATIVE)
[2017-12-24 23:17] VITALS: BP 128/75; PULSE 96
[2017-12-24 23:21] LABS: Amphetamine,Urine POSITIVE (NEGATIVE)
== END 2017-12-24 23:30 | disposition home or self-care (01) ==
LOC: ED 20:41
DX: R00.2 Palpitations (principal); I49.3 Ventricular premature depolarization; F41.9 Anxiety disorder, unspecified; F32.9 Major depressive disorder, single episode, unspecified; B19.20 Unspecified viral hepatitis C without hepatic coma; F19.10 Other psychoactive substance abuse, uncomplicated; Z72.0 Tobacco use
CPT/HCPCS: 36000; 36415; 80053; 80307; 81001; 84484; 85025; 93005; 96360; 99284; G0481; G0480

== ENCOUNTER 2018-06-03 20:19 | Emergency (ER) | payer MEDICAID, OTHER ==
[2018-06-03] MEDS ORDERED: Sodium Chloride 0.9% 1000 ML 1,000 ML IV STA ×2 (20:50→20:52)
[2018-06-03] MEDS ORDERED: TORAdol 30 mg Injection IV ONE (20:50)
[2018-06-03] MEDS ORDERED: Zofran 4 MG/2 ML VIAL IV ONE (20:50)
[2018-06-03] MEDS ORDERED: Zofran 4 MG/2 ML VIAL ONE (20:54)
[2018-06-03] MEDS ORDERED: Sodium Chloride 0.9% 1000 ML 1,000 ML ONE ×2 (20:55→22:03)
[2018-06-03] MEDS ORDERED: TORAdol 30 mg Injection ONE (20:55)
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
[2018-06-03 21:06] LABS: BASOPHIL % 0.2 % (0.0-0.4); Basophil (Absolute #) 0.02 (0-0.4); Eosinophil % 3.7 % (0.00-5.0); Eosinophil (Absolute #) 0.31 (0-0.5); Granulocyte Absolute (ANC) 2.04 (1.4-6.9); Granulocytes % 24.6 % (36.0-66.0); Hematocrit 44.7 % (42-50); Hemoglobin 14.8 gm/dl (12.5-18.0); Lymphocyte (Absolute #) 4.82 (1.0-4.6); Lymphocytes % 57.9 % (24.0-44.0); Mean Cell Volume 98.9 fl (78-100); Mean Corpuscular Hemoglobin 32.7 pg (26-32); Mean Corpuscular Hgb Concent. 33.1 g/dl (32-36); Mean Platelet Volume 9.2 fl (6-9.5); Monocyte (Absolute #) 1.13 (0.0-1.3); Monocytes % 13.6 % (0.0-12.0); Platelet Count 351 K/mm3 (150-450); Red Blood Count 4.52 M/mm3 (4.1-5.6); Red Cell Distribution Width 12.8 % (11.5-14.0); White Blood Count 8.3 K/mm3 (4.0-10.5)
[2018-06-03 21:20] LABS: ALBUMIN 4.2 g/dL (3.5-5.0); ALKALINE PHOSPHATASE 75 U/L (38-126); AMYLASE 48 U/L (30-110); ANION GAP 16.9 MEQ/L (5-15); BLOOD UREA NITROGEN 13 mg/dL (9-20); CHLORIDE 102 mmol/L (98-107); Calcium 9.3 mg/dL (8.4-10.2); Carbon Dioxide 29 mmol/L (22-30); Creatinine 1 1.08 mg/dL (0.66-1.25); Glucose 76 mg/dL (74-106); LIPASE 37 U/L (23-300); Potassium 3.5 mmol/L (3.5-5.1); SGOT/AST 27 U/L (17-59); SGPT/ALT 41 U/L (0-50); SODIUM 144 mmol/L (137-145); Total Protein 7.7 g/dL (6.3-8.2)
[2018-06-03] MEDS ORDERED: Phenergan 25 MG INJ IV ONE (21:23)
[2018-06-03] MEDS ORDERED: Phenergan 25 MG INJ ONE (21:27)
[2018-06-03] MEDS ORDERED: Sodium Chloride 0.9% 100 ML IVPB 100 ML IV ONE (21:27)
[2018-06-03 22:56] VITALS: O2SAT 99
[2018-06-03 23:13] LABS: Appearance CLEAR (CLEAR); Bilirubin NEGATIVE (NEGATIVE); Blood NEGATIVE Ery/ul (0-5); Glucose NEGATIVE (NEGATIVE); Ketones NEGATIVE (NEGATIVE); Leukocyte Esterase NEGATIVE (NEGATIVE); Mucus SLIGHT /HPF (NEGATIVE); Nitrite NEGATIVE (NEGATIVE); Protein,Urine Dip NEGATIVE (Negative); Specific Gravity 1.013 (1.005-1.025); Urobilinogen 4 mg/dL (0-1); WBC 0-2 /HPF (0-5)
[2018-06-03] MEDS ORDERED: MORPHINE SULFATE 10 MG/ML IV ONE (23:15)
[2018-06-03 23:27] LABS: Barbiturate,Urine NEGATIVE (NEGATIVE); Benzodiazepine,Urine NEGATIVE (NEGATIVE); Cocaine,Urine NEGATIVE (NEGATIVE); Methadone,Urine NEGATIVE (NEGATIVE); Opiate,Urine NEGATIVE (NEGATIVE); PCP,Urine NEGATIVE (NEGATIVE); THC,Urine POSITIVE (NEGATIVE)
[2018-06-03] MEDS ORDERED: MORPHINE SULFATE 4 MG INJ ONE (23:41)
[2018-06-03] MEDS ORDERED: MORPHINE SULFATE 10 MG/ML IM ONE (23:41)
[2018-06-03 23:49] LABS: Amphetamine,Urine POSITIVE (NEGATIVE)
[2018-06-03 23:57] VITALS: BP 110/66; PULSE 71
--- NOTE | 2018-06-04 08:38 | XRAY ---
Indication: Right lower quadrant pain. Nausea and vomiting. Multiple contiguous axial images obtained through the abdomen and pelvis without contrast as ordered. Comparison: December 04, 2017. Lung bases demonstrates stable left lower lobe calcified granuloma. No infiltrate or effusion. Heart is not enlarged. Stomach again distended with food/fluid. Noncontrasted stomach and bowel loops appear nonobstructed. Normal appendix. No free fluid/air. Stable nonobstructing right renal micro-calculi. Remaining liver, gallbladder, pancreas, spleen, adrenal glands, kidneys, ureters, bladder, and aorta appear unremarkable for noncontrast exam. Osseous structures intact. Impression: 1. Stable nonobstructing right renal micro-calculi. 2. No new or acute intra-abdominal/pelvic abnormalities on this noncontrast exam. CT DI 15.41
== END 2018-06-04 00:27 | disposition home or self-care (01) ==
LOC: ED 20:19
DX: N23 Unspecified renal colic (principal); B19.20 Unspecified viral hepatitis C without hepatic coma; Z87.442 Personal history of urinary calculi; F15.11 Other stimulant abuse, in remission; R10.9 Unspecified abdominal pain
CPT/HCPCS: 36000; 36415; 74176; 80053; 80307; 81001; 82150; 83690; 85025; 96360; 96361; 96372; 96374; 96375; 99284; J1885; J2270; J2405; J2550

== ENCOUNTER 2018-07-05 23:42 | Emergency (ER) | payer MEDICAID ==
[2018-07-05] MEDS ORDERED: Sodium Chloride 0.9% 1000 ML 1,000 ML IV SCH (23:45)
[2018-07-05] MEDS ORDERED: Ativan 2 MG/1 ML VIAL IV ONE (23:51)
[2018-07-05] MEDS ORDERED: Zofran 4 MG/2 ML VIAL IV ONE (23:51)
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
[2018-07-05] MEDS ORDERED: Ativan 2 MG/1 ML VIAL ONE (23:56)
[2018-07-06] MEDS ORDERED: Zofran 4 MG/2 ML VIAL ONE (00:01)
[2018-07-06] MEDS ORDERED: Sodium Chloride 0.9% 1000 ML 1,000 ML ONE (00:01)
[2018-07-06 00:16] LABS: Hematocrit 44.7 % (42-50); Hemoglobin 15.7 gm/dl (12.5-18.0); Mean Cell Volume 94.9 fl (78-100); Mean Corpuscular Hemoglobin 33.3 pg (26-32); Mean Corpuscular Hgb Concent. 35.1 g/dl (32-36); Mean Platelet Volume 9.3 fl (6-9.5); Platelet Count 375 K/mm3 (150-450); Red Blood Count 4.71 M/mm3 (4.1-5.6); Red Cell Distribution Width 12.6 % (11.5-14.0)
[2018-07-06 00:30] LABS: ACETAMINOPHEN < 10 ug/ml (10-30); ALBUMIN 4.8 g/dL (3.5-5.0); ALKALINE PHOSPHATASE 206 U/L (38-126); ANION GAP 18.4 MEQ/L (5-15); BLOOD UREA NITROGEN 6 mg/dL (9-20); CHLORIDE 106 mmol/L (98-107); Calcium 10.2 mg/dL (8.4-10.2); Carbon Dioxide 20 mmol/L (22-30); Creatinine 1 0.85 mg/dL (0.66-1.25); ETHYL ALCOHOL < 10 mg/dL (0-10); Glucose 102 mg/dL (74-106); Potassium 3.6 mmol/L (3.5-5.1); SALICYLATE < 1.0 mg/dL (2-20); SGOT/AST 76 U/L (17-59); SGPT/ALT 323 U/L (0-50); SODIUM 141 mmol/L (137-145); Total Protein 9.3 g/dL (6.3-8.2)
[2018-07-06 02:04] LABS: Appearance CLEAR (CLEAR); Bilirubin NEGATIVE (NEGATIVE); Blood NEGATIVE Ery/ul (0-5); Glucose NEGATIVE (NEGATIVE); Ketones NEGATIVE (NEGATIVE); Leukocyte Esterase NEGATIVE (NEGATIVE); Nitrite NEGATIVE (NEGATIVE); Protein,Urine Dip NEGATIVE (Negative); Specific Gravity 1.003 (1.005-1.025); Urobilinogen NEGATIVE mg/dL (0-1)
[2018-07-06 02:10] LABS: ATYPICAL LYMPHS 4 %; BAND 1 % (0.0-2.0); Eosinophil 2 % (0.00-3.0); Lymphocytes 49 % (24-44); Monocyte 17 % (0.0-12.0); Neutrophils 27 % (36.-66.); Platelet Estimate NORMAL (NORMAL); Total Cells Counted 100
[2018-07-06 02:18] LABS: Barbiturate,Urine NEGATIVE (NEGATIVE); Benzodiazepine,Urine NEGATIVE (NEGATIVE); Cocaine,Urine NEGATIVE (NEGATIVE); Methadone,Urine NEGATIVE (NEGATIVE); Opiate,Urine NEGATIVE (NEGATIVE); PCP,Urine NEGATIVE (NEGATIVE); THC,Urine NEGATIVE (NEGATIVE)
[2018-07-06 02:44] LABS: Amphetamine,Urine POSITIVE (NEGATIVE)
[2018-07-06 02:49] VITALS: BP 106/57; PULSE 68; O2SAT 98
--- NOTE | 2018-07-11 09:03 | XRAY ---
Indication: Chest pain and short of breath. Elevated d-dimer. Multiple contiguous axial images obtained through the chest using 80 cc Isovue 370 contrast and PE protocol. Comparison: None There is good opacification of the pulmonary arteries to include the lobar and segmental branches. No filling defect or pulmonary embolus. Heart is not enlarged. Aorta is normal in course and caliber. A few tiny mediastinal and left hilar calcified nodes. No pathologic mediastinal/hilar lymphadenopathy. Lungs are inflated and clear with incidental left lower lobe calcified granuloma. Bony thorax intact with moderate dextrorotoscoliosis centered at T6. Limited upper abdomen including adrenal glands unremarkable Impression: 1. Negative pulmonary embolus. No acute cardiopulmonary abnormalities. 2. Incidental dextrorotoscoliosis and evidence for old granulomatous disease. Comment: Preliminary interpretation was made by [facility]. No critical discrepancy. CTDI 13.74
== END 2018-07-06 02:50 | disposition home or self-care (01) ==
LOC: ED 23:42
DX: R07.9 Chest pain, unspecified (principal); F15.10 Other stimulant abuse, uncomplicated; F12.10 Cannabis abuse, uncomplicated
CPT/HCPCS: 36000; 36415; 71260; 80053; 80307; 81001; 84484; 85025; 85379; 93005; 96360; 96361; 96374; 96375; 99284; G0481; P9612; J2060; J2405; G0480

== ENCOUNTER 2018-08-01 19:28 | Emergency (ER) | payer MEDICAID ==
[2018-08-01] MEDS ORDERED: Sodium Chloride 0.9% 1000 ML 1,000 ML IV STA ×2 (19:53→20:35)
[2018-08-01] MEDS ORDERED: Zofran 4 MG/2 ML VIAL IV ONE (19:53)
[2018-08-01] MEDS ORDERED: TORAdol 30 mg Injection IV ONE (19:53)
[2018-08-01] MEDS ORDERED: TORAdol 30 mg Injection ONE (20:01)
[2018-08-01] MEDS ORDERED: Sodium Chloride 0.9% 1000 ML 1,000 ML ONE ×2 (20:01→21:28)
[2018-08-01] MEDS ORDERED: Zofran 4 MG/2 ML VIAL ONE (20:01)
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
[2018-08-01 20:11] LABS: BASOPHIL % 0.3 % (0.0-0.4); Basophil (Absolute #) 0.02 (0-0.4); Eosinophil % 3.2 % (0.00-5.0); Eosinophil (Absolute #) 0.22 (0-0.5); Granulocyte Absolute (ANC) 2.08 (1.4-6.9); Granulocytes % 30.8 % (36.0-66.0); Hematocrit 42.6 % (42-50); Hemoglobin 14.1 gm/dl (12.5-18.0); Lymphocyte (Absolute #) 3.63 (1.0-4.6); Lymphocytes % 53.5 % (24.0-44.0); Mean Cell Volume 101.2 fl (78-100); Mean Corpuscular Hemoglobin 33.5 pg (26-32); Mean Corpuscular Hgb Concent. 33.1 g/dl (32-36); Mean Platelet Volume 9.7 fl (6-9.5); Monocyte (Absolute #) 0.83 (0.0-1.3); Monocytes % 12.2 % (0.0-12.0); Platelet Count 271 K/mm3 (150-450); Red Blood Count 4.21 M/mm3 (4.1-5.6); White Blood Count 6.8 K/mm3 (4.0-10.5)
[2018-08-01 20:24] LABS: ALBUMIN 3.8 g/dL (3.5-5.0); ALKALINE PHOSPHATASE 114 U/L (38-126); AMYLASE 81 U/L (30-110); BLOOD UREA NITROGEN 11 mg/dL (9-20); CHLORIDE 104 mmol/L (98-107); Calcium 9.2 mg/dL (8.4-10.2); Carbon Dioxide 31 mmol/L (22-30); Creatinine 1 0.95 mg/dL (0.66-1.25); Glucose 55 mg/dL (74-106); LIPASE 48 U/L (23-300); Potassium 4.1 mmol/L (3.5-5.1); SGOT/AST 40 U/L (17-59); SGPT/ALT 74 U/L (0-50); SODIUM 144 mmol/L (137-145); Total Protein 7.3 g/dL (6.3-8.2)
[2018-08-01] MEDS ORDERED: BENADRYL 50 MG/ML IV ONE (20:35)
[2018-08-01] MEDS ORDERED: Hydromorphone 1 mg/ml Ampule IV ONE (20:35)
[2018-08-01] MEDS ORDERED: BENADRYL 50 MG/ML ONE (20:47)
[2018-08-01] MEDS ORDERED: Hydromorphone 1 mg/ml Ampule ONE (20:48)
[2018-08-01 21:27] LABS: Appearance CLEAR (CLEAR); Bilirubin NEGATIVE (NEGATIVE); Blood NEGATIVE Ery/ul (0-5); Glucose NEGATIVE (NEGATIVE); Ketones NEGATIVE (NEGATIVE); Leukocyte Esterase NEGATIVE (NEGATIVE); Mucus SLIGHT /HPF (NEGATIVE); Nitrite NEGATIVE (NEGATIVE); Protein,Urine Dip NEGATIVE (Negative); Urobilinogen 2 mg/dL (0-1)
[2018-08-01 21:41] LABS: Amphetamine,Urine NEGATIVE (NEGATIVE); Barbiturate,Urine NEGATIVE (NEGATIVE); Benzodiazepine,Urine NEGATIVE (NEGATIVE); Cocaine,Urine NEGATIVE (NEGATIVE); Methadone,Urine NEGATIVE (NEGATIVE); Opiate,Urine NEGATIVE (NEGATIVE); PCP,Urine NEGATIVE (NEGATIVE); THC,Urine NEGATIVE (NEGATIVE)
[2018-08-01 21:50] VITALS: BP 106/63; PULSE 68
[2018-08-01 21:55] VITALS: O2SAT 99
[2018-08-01] MEDS ORDERED: Tylenol #3 Tablet PO ONE (22:05)
[2018-08-01] MEDS ORDERED: ZOFRAN ODT 4 MG PO ONE (22:06)
[2018-08-01] MEDS ORDERED: ZOFRAN ODT 4 MG ONE (22:16)
[2018-08-01] MEDS ORDERED: Tylenol #3 Tablet ONE (22:16)
--- NOTE | 2018-08-01 22:38 | XRAY ---
Indication: Right abdominal pain. Vomiting. History of hepatitis C. Multiple contiguous axial images obtained through the abdomen and pelvis using 80 cc Isovue 370 contrast only. Comparison: December 04, 2017 and June 03, 2018. Lung bases remain clear again with incidental note left lower lobe calcified granuloma. Heart is not enlarged. Stomach is distended with food/fluid and radiopacities presumed ingested medication/bismuth. Noncontrasted stomach and bowel loops appear nonobstructed. Normal appendix. There is now mild diffuse scattered colonic fecal debris throughout including rectum. No free fluid/air. Stable nonobstructing right renal microcalculi. Gallbladder is now moderately distended with minimal wall edema and tiny 3-4 mm curvilinear stone/gravel in the neck of the gallbladder. Remaining liver, pancreas, spleen, adrenal glands, kidneys, ureters, bladder, and aorta appear unremarkable. No pathologic retroperitoneal lymphadenopathy. Osseous structures intact. Impression: 1. New distended gallbladder with wall edema, and tiny stone/gravel. Gallbladder sonogram may yield further information. 2. New diffuse fecal stasis. 3. Stable nonobstructing right renal microcalculi. Comment: Preliminary interpretation was made by [facility]. No critical discrepancy. CTDI 11.88
== END 2018-08-01 22:24 | disposition home or self-care (01) ==
LOC: ED 19:28
DX: K80.50 Calculus of bile duct without cholangitis or cholecystitis without obstruction (principal); K80.20 Calculus of gallbladder without cholecystitis without obstruction; N20.0 Calculus of kidney
CPT/HCPCS: 36000; 36415; 74177; 80053; 80307; 81001; 82150; 83690; 85025; 96360; 96361; 96374; 96375; 96376; 99284; J1170; J1200; J1885; J2405; Q0162; A9270-GY

== ENCOUNTER 2018-10-06 19:09 | Emergency (ER) | payer MEDICAID ==
[2018-10-06] MEDS ORDERED: TORAdol 30 mg Injection IM ONE (20:34)
[2018-10-06] MEDS ORDERED: AMOXIL 500 MG PO ONE (20:34)
[2018-10-06] MEDS ORDERED: TORAdol 30 mg Injection ONE (20:37)
[2018-10-06] MEDS ORDERED: AMOXIL 500 MG ONE (20:38)
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
[2018-10-06 20:47] VITALS: BP 115/84; PULSE 65; O2SAT 98
== END 2018-10-06 21:02 | disposition home or self-care (01) ==
LOC: ED 19:09
DX: K08.89 Other specified disorders of teeth and supporting structures (principal); K08.409 Partial loss of teeth, unspecified cause, unspecified class; Z98.818 Other dental procedure status
CPT/HCPCS: 96372; 99283; J1885; A9270-GY

== ENCOUNTER 2018-10-14 16:18 | Emergency (ER) | payer OTHER ==
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
[2018-10-14 17:32] VITALS: BP 120/75; O2SAT 98
[2018-10-14 17:37] VITALS: PULSE 77
== END 2018-10-14 17:34 | disposition home or self-care (01) ==
LOC: ED 16:18
DX: R21 Rash and other nonspecific skin eruption (principal)
CPT/HCPCS: 99283

== ENCOUNTER → 2018-10-26 | Emergency (ER) | payer OTHER | LOC: ED 21:12 | DX: Z53.21 Procedure and treatment not carried out due to patient leaving prior to being seen by health care provider (principal) ==

== ENCOUNTER 2018-11-21 22:59 | Emergency (ER) | payer OTHER ==
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
[2018-11-21] MEDS ORDERED: NORCO 5/325 MG PO ONE (23:28)
[2018-11-21] MEDS ORDERED: NORCO 5/325 MG ONE (23:30)
[2018-11-21] MEDS ORDERED: ZOFRAN ODT 4 MG PO ONE (23:33)
[2018-11-21] MEDS ORDERED: ZOFRAN ODT 4 MG ONE (23:39)
[2018-11-22 02:32] VITALS: BP 120/67; PULSE 54; O2SAT 98
--- NOTE | 2018-11-22 08:56 | XRAY ---
Indication: Severe headache. Multiple contiguous axial images obtained through the head without contrast. Comparison: September 29, 2015. Again normal appearing brain parenchyma, ventricles, and bony calvarium. Visualized paranasal sinuses and mastoid air cells are clear without fluid leveling. Impression: Normal CT head without contrast exam. Comment: Preliminary interpretation was made by [facility]. No critical discrepancy. CTDI 70.55
== END 2018-11-22 02:32 | disposition home or self-care (01) ==
LOC: ED 22:59
DX: R51 Headache (principal)
CPT/HCPCS: 70450; 99284; Q0162; A9270-GY

== ENCOUNTER 2018-11-22 12:27 | Emergency (ER) | payer OTHER ==
[2018-11-22] MEDS ORDERED: PROTONIX 40 MG IV IV ONE ×2 (12:45→12:54)
[2018-11-22] MEDS ORDERED: Zofran 4 MG/2 ML VIAL IV ONE (12:45)
[2018-11-22] MEDS ORDERED: Sodium Chloride 0.9% 1000 ML 1,000 ML IV STA (12:45)
[2018-11-22 12:54] LABS: Lactic Acid 2.8 (0.4-2.0)
[2018-11-22] MEDS ORDERED: Sodium Chloride 0.9% 1000 ML 1,000 ML ONE (12:54)
[2018-11-22] MEDS ORDERED: Zofran 4 MG/2 ML VIAL ONE (12:54)
[2018-11-22 12:56] LABS: Absolute Neutrophil Ct (ANC) 1.49 (1.4-6.9); BASOPHIL % 0.2 % (0.0-0.4); Basophil (Absolute #) 0.01 (0-0.4); Eosinophil % 3.1 % (0.00-5.0); Eosinophil (Absolute #) 0.18 (0-0.5); Hemoglobin 13.9 gm/dl (12.5-18.0); Lymphocyte (Absolute #) 3.17 (1.0-4.6); Mean Cell Volume 102.4 fl (78-100); Mean Corpuscular Hemoglobin 33.9 pg (26-32); Mean Corpuscular Hgb Concent. 33.1 g/dl (32-36); Mean Platelet Volume 8.9 fl (6-9.5); Monocyte (Absolute #) 0.91 (0.0-1.3); Monocytes % 15.8 % (0.0-12.0); Neutrophil % 25.9 % (36.0-66.0); Platelet Count 210 K/mm3 (150-450); Red Cell Distribution Width 12.7 % (11.5-14.0); White Blood Count 5.8 K/mm3 (4.0-10.5)
[2018-11-22 12:59] LABS: Appearance CLEAR (CLEAR); Bilirubin NEGATIVE (NEGATIVE); Blood NEGATIVE Ery/ul (0-5); Glucose NEGATIVE (NEGATIVE); Ketones NEGATIVE (NEGATIVE); Leukocyte Esterase NEGATIVE (NEGATIVE); Mucus SLIGHT /HPF (NEGATIVE); Nitrite NEGATIVE (NEGATIVE); Protein,Urine Dip NEGATIVE (Negative); Specific Gravity 1.011 (1.005-1.025); Urobilinogen NEGATIVE mg/dL (0-1)
[2018-11-22 13:06] LABS: ALBUMIN 3.8 g/dL (3.5-5.0); ALKALINE PHOSPHATASE 79 U/L (38-126); AMYLASE 55 U/L (30-110); ANION GAP 13.1 MEQ/L (5-15); BLOOD UREA NITROGEN 18 mg/dL (9-20); Bacteria NONE SEEN /HPF (NEGATIVE); CHLORIDE 105 mmol/L (98-107); Carbon Dioxide 30 mmol/L (22-30); Creatinine 1 1.06 mg/dL (0.66-1.25); Glucose 83 mg/dL (74-106); LIPASE 30 U/L (23-300); Potassium 4.1 mmol/L (3.5-5.1); SGOT/AST 33 U/L (17-59); SGPT/ALT 42 U/L (0-50); SODIUM 144 mmol/L (137-145); Total Protein 7.1 g/dL (6.3-8.2)
[2018-11-22 13:13] LABS: Amphetamine,Urine NEGATIVE (NEGATIVE); Barbiturate,Urine NEGATIVE (NEGATIVE); Benzodiazepine,Urine NEGATIVE (NEGATIVE); Cocaine,Urine NEGATIVE (NEGATIVE); Methadone,Urine NEGATIVE (NEGATIVE); Opiate,Urine NEGATIVE (NEGATIVE); PCP,Urine NEGATIVE (NEGATIVE); THC,Urine NEGATIVE (NEGATIVE)
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
[2018-11-22] MEDS ORDERED: SUBLIMAZE 100 MCG/2 ML IV ONE (13:41)
[2018-11-22] MEDS ORDERED: SUBLIMAZE 100 MCG/2 ML ONE (13:45)
[2018-11-22] MEDS ORDERED: TORAdol 30 mg Injection IV ONE (15:02)
[2018-11-22 15:04] VITALS: BP 120/68; PULSE 52
[2018-11-22] MEDS ORDERED: TORAdol 30 mg Injection ONE (15:04)
[2018-11-22 15:05] VITALS: O2SAT 99
--- NOTE | 2018-11-22 19:48 | XRAY ---
Indication: Abdomen pain. Nausea and vomiting. 2-dimensional gallbladder sonogram performed. Comparison: July 25, 2017. Pancreas not well-seen due to overlying bowel gas. Gallbladder normally distended without gallstones, wall thickening, or pericholecystic fluid. Common bile duct measures 3.1 mm. No intrahepatic biliary distention. Remaining visualized portions of the liver and right kidney appear sonographically unremarkable. Right kidney measures 10.6 cm in length. No ascites. Impression: Pancreas not well-visualized. Remaining gallbladder sonogram is negative. Comment: Preliminary report was given.
== END 2018-11-22 15:29 | disposition home or self-care (01) ==
LOC: ED 12:27
DX: R10.10 Upper abdominal pain, unspecified (principal); R11.11 Vomiting without nausea
CPT/HCPCS: 36000; 36415; 76705; 80053; 80307; 81001; 82150; 83605; 83690; 84484; 85025; 96360; 96374; 96375; 99284; J1885; J2405; J3010

== ENCOUNTER 2018-11-23 22:59 | Emergency (ER) | payer OTHER ==
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
[2018-11-23] MEDS ORDERED: TORAdol 30 mg Injection IM ONE (23:48)
[2018-11-23] MEDS ORDERED: BENADRYL 50 MG/ML IM ONE (23:49)
[2018-11-23] MEDS ORDERED: BENADRYL 50 MG/ML ONE (23:55)
[2018-11-23] MEDS ORDERED: TORAdol 30 mg Injection ONE (23:55)
[2018-11-24 00:07] VITALS: BP 134/90; PULSE 68; O2SAT 98
== END 2018-11-24 00:34 | disposition home or self-care (01) ==
LOC: ED 22:59
DX: R51 Headache (principal)
CPT/HCPCS: 96372; 99284; J1200; J1885

== ENCOUNTER 2018-11-24 15:28 | Emergency (ER) | payer OTHER ==
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
[2018-11-24] MEDS ORDERED: TYLENOL 325 MG PO ONE (16:25)
[2018-11-24] MEDS ORDERED: TORAdol 30 mg Injection IV ONE (16:25)
[2018-11-24] MEDS ORDERED: Reglan 10 MG/2 ML IV ONE (16:25)
[2018-11-24] MEDS ORDERED: Sodium Chloride 0.9% 1000 ML 1,000 ML IV STA (16:25)
[2018-11-24] MEDS ORDERED: BENADRYL 50 MG/ML IV ONE (16:25)
[2018-11-24] MEDS ORDERED: Reglan 10 MG/2 ML ONE (16:37)
[2018-11-24] MEDS ORDERED: Sodium Chloride 0.9% 1000 ML 1,000 ML ONE (16:37)
[2018-11-24] MEDS ORDERED: TORAdol 30 mg Injection ONE (16:37)
[2018-11-24] MEDS ORDERED: TYLENOL 325 MG ONE (16:37)
[2018-11-24] MEDS ORDERED: BENADRYL 50 MG/ML ONE (16:37)
[2018-11-24] MEDS ORDERED: Hydromorphone 1 mg/ml Ampule IV ONE (18:14)
[2018-11-24] MEDS ORDERED: Hydromorphone 1 mg/ml Ampule ONE (18:22)
[2018-11-24 18:53] VITALS: BP 121/83; PULSE 95; O2SAT 96
== END 2018-11-24 19:26 | disposition home or self-care (01) ==
LOC: ED 15:28
DX: R51 Headache (principal)
CPT/HCPCS: 36000; 96360; 96374; 96375; 99284; J1170; J1200; J1885; A9270-GY

== ENCOUNTER 2018-11-26 00:05 | Emergency (ER) | payer MEDICAID, OTHER ==
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
[2018-11-26] MEDS ORDERED: TORAdol 30 mg Injection IM ONE (00:28)
[2018-11-26] MEDS ORDERED: DECADRON 10MG INJ. IM ONE (00:28)
[2018-11-26] MEDS ORDERED: BENADRYL 50 MG/ML IM ONE (00:29)
[2018-11-26] MEDS ORDERED: Phenergan 25 MG INJ IM ONE (00:31)
[2018-11-26] MEDS ORDERED: BENADRYL 50 MG/ML ONE (00:38)
[2018-11-26] MEDS ORDERED: Decadron 4 MG INJ ONE (00:38)
[2018-11-26] MEDS ORDERED: Phenergan 25 MG INJ ONE (00:38)
[2018-11-26] MEDS ORDERED: DECADRON 10MG INJ. ONE (00:43)
[2018-11-26 01:01] LABS: Appearance CLEAR (CLEAR); Bilirubin NEGATIVE (NEGATIVE); Blood NEGATIVE Ery/ul (0-5); Glucose NEGATIVE (NEGATIVE); Ketones NEGATIVE (NEGATIVE); Leukocyte Esterase NEGATIVE (NEGATIVE); Mucus SLIGHT /HPF (NEGATIVE); Nitrite NEGATIVE (NEGATIVE); Protein,Urine Dip NEGATIVE (Negative); Specific Gravity 1.009 (1.005-1.025); Urobilinogen NEGATIVE mg/dL (0-1)
[2018-11-26 01:12] VITALS: O2SAT 98
[2018-11-26 01:14] LABS: Amphetamine,Urine NEGATIVE (NEGATIVE); Barbiturate,Urine NEGATIVE (NEGATIVE); Benzodiazepine,Urine NEGATIVE (NEGATIVE); Cocaine,Urine NEGATIVE (NEGATIVE); Methadone,Urine NEGATIVE (NEGATIVE); Opiate,Urine NEGATIVE (NEGATIVE); PCP,Urine NEGATIVE (NEGATIVE); THC,Urine NEGATIVE (NEGATIVE)
[2018-11-26 01:38] VITALS: BP 117/69; PULSE 58
== END 2018-11-26 01:38 | disposition home or self-care (01) ==
LOC: ED 00:05
DX: R51 Headache (principal); T50.905A Adverse effect of unspecified drugs, medicaments and biological substances, initial encounter
CPT/HCPCS: 80307; 81001; 96372; 99284; J1100; J1200; J2550

== ENCOUNTER 2018-12-07 18:35 | Emergency (ER) | payer MEDICAID ==
[2018-12-07 19:08] VITALS: O2SAT 98
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
[2018-12-07 20:00] LABS: Hematocrit 39.9 % (42-50); Hemoglobin 13.4 gm/dl (12.5-18.0); Mean Cell Volume 100.3 fl (78-100); Mean Corpuscular Hgb Concent. 33.6 g/dl (32-36); Platelet Count 237 K/mm3 (150-450); Red Blood Count 3.98 M/mm3 (4.1-5.6); Red Cell Distribution Width 12.5 % (11.5-14.0); White Blood Count 6.3 K/mm3 (4.0-10.5)
[2018-12-07 20:16] LABS: Mean Corpuscular Hemoglobin 33.6 pg (26-32)
[2018-12-07 20:25] LABS: ALBUMIN 3.8 g/dL (3.5-5.0); ALKALINE PHOSPHATASE 90 U/L (38-126); AMYLASE 51 U/L (30-110); ANION GAP 14.6 MEQ/L (5-15); BLOOD UREA NITROGEN 16 mg/dL (9-20); CHLORIDE 112 mmol/L (98-107); Carbon Dioxide 22 mmol/L (22-30); Creatinine 1 1.09 mg/dL (0.66-1.25); Glucose 90 mg/dL (74-106); SGOT/AST 27 U/L (17-59); SGPT/ALT 37 U/L (0-50); SODIUM 145 mmol/L (137-145)
[2018-12-07] MEDS ORDERED: ZOFRAN ODT 4 MG PO ONE (20:34)
[2018-12-07] MEDS ORDERED: DELTASONE 10 MG PO ONE (20:39)
[2018-12-07] MEDS ORDERED: DELTASONE 20 MG ONE (20:46)
[2018-12-07] MEDS ORDERED: ZOFRAN ODT 4 MG ONE (20:46)
[2018-12-07 20:55] LABS: INR 0.99 (0.8-3.0); PROTIME 11.2 SECONDS (8.83-12.87)
[2018-12-07 21:13] VITALS: BP 122/73; PULSE 86
== END 2018-12-07 21:10 | disposition home or self-care (01) ==
LOC: ED 18:35
DX: J32.9 Chronic sinusitis, unspecified (principal); R10.9 Unspecified abdominal pain; G89.29 Other chronic pain
CPT/HCPCS: 36415; 80053; 82150; 83605; 85027; 85610; 99283; Q0162; A9270-GY

== ENCOUNTER 2018-12-23 15:55 | Emergency (ER) | payer MEDICAID ==
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
--- NOTE | 2018-12-23 16:41 | XRAY ---
Indication: Pain following head injury. Multiple contiguous axial images obtained through the head without contrast. Comparison: November 22, 2018. Again normal appearing brain parenchyma, ventricles, and bony calvarium. Visualized paranasal sinuses and mastoid air cells are clear. Impression: Again normal CT head without contrast exam. CTDI 38.97
[2018-12-23] MEDS ORDERED: TYLENOL 325 MG PO STA (16:50)
[2018-12-23] MEDS ORDERED: TYLENOL 325 MG ONE (16:55)
[2018-12-23 17:14] VITALS: BP 104/54; PULSE 96; O2SAT 99
== END 2018-12-23 17:15 | disposition home or self-care (01) ==
LOC: ED 15:55
DX: R51 Headache (principal); S00.93XA Contusion of unspecified part of head, initial encounter; Y92.69 Other specified industrial and construction area as the place of occurrence of the external cause; Z79.899 Other long term (current) drug therapy; I25.2 Old myocardial infarction
CPT/HCPCS: 70450; 99283; A9270-GY

== ENCOUNTER 2019-03-16 18:24 | Emergency (ER) | payer MEDICAID, OTHER ==
[2019-03-16 19:11] VITALS: O2SAT 98
[2019-03-16] MEDS ORDERED: Ativan 1 MG ONE (19:26)
[2019-03-16] MEDS ORDERED: BENADRYL 50 MG/ML ONE (19:26)
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
[2019-03-16] MEDS ORDERED: BENADRYL 50 MG/ML IM ONE (19:45)
[2019-03-16] MEDS ORDERED: Ativan 1 MG PO ONE (19:46)
[2019-03-16] MEDS ORDERED: COGENTIN 0.5 MG PO ONE (19:51)
[2019-03-17 04:23] VITALS: BP 107/56; PULSE 102
== END 2019-03-16 21:17 | disposition home or self-care (01) ==
LOC: ED 18:24
DX: G24.02 Drug induced acute dystonia (principal); F20.9 Schizophrenia, unspecified
CPT/HCPCS: 96372; 99284; J1200; A9270-GY

== ENCOUNTER 2019-06-22 19:17 | Emergency (ER) | payer SELFPAY ==
[2019-06-22 19:46] LABS: Absolute Neutrophil Ct (ANC) 3.53 (1.4-6.9); BASOPHIL % 0.3 % (0.0-0.4); Basophil (Absolute #) 0.02 (0-0.4); Eosinophil % 1.4 % (0.00-5.0); Eosinophil (Absolute #) 0.11 (0-0.5); Hematocrit 43.2 % (42-50); Hemoglobin 14.6 gm/dl (12.5-18.0); Lymphocyte (Absolute #) 3.24 (1.0-4.6); Lymphocytes % 42.3 % (24.0-44.0); Mean Cell Volume 97.3 fl (78-100); Mean Corpuscular Hemoglobin 32.9 pg (26-32); Mean Corpuscular Hgb Concent. 33.8 g/dl (32-36); Mean Platelet Volume 9.4 fl (7.5-11.0); Monocyte (Absolute #) 0.76 (0.0-1.3); Monocytes % 9.9 % (0.0-12.0); Neutrophil % 46.1 % (36.0-66.0); Platelet Count 317 K/mm3 (150-450); Red Blood Count 4.44 M/mm3 (4.1-5.6); Red Cell Distribution Width 12.9 % (11.5-14.0); White Blood Count 7.7 K/mm3 (4.0-10.5)
[2019-06-22 19:57] LABS: ALBUMIN 4.4 g/dL (3.5-5.0); ALKALINE PHOSPHATASE 87 U/L (38-126); ANION GAP 11.9 MEQ/L (5-15); BLOOD UREA NITROGEN 17 mg/dL (9-20); CHLORIDE 109 mmol/L (98-107); Calcium 9.4 mg/dL (8.4-10.2); Carbon Dioxide 25 mmol/L (22-30); Creatinine 1 0.83 mg/dL (0.66-1.25); Glucose 101 mg/dL (74-106); Potassium 3.2 mmol/L (3.5-5.1); SGOT/AST 27 U/L (17-59); SGPT/ALT 40 U/L (0-50); SODIUM 143 mmol/L (137-145); Total Protein 7.8 g/dL (6.3-8.2)
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
[2019-06-22] MEDS ORDERED: Klor Con 10 MEQ PO ONE ×2 (20:11→20:19)
[2019-06-22 23:15] VITALS: O2SAT 100
[2019-06-22 23:44] VITALS: BP 114/91; PULSE 92
--- NOTE | 2019-06-23 08:45 | XRAY ---
Indication: Chest pain. Comparison: July 24, 2017. Portable chest again demonstrates normal heart and lungs. Bony thorax intact again with moderate dextrorotoscoliosis. No new/acute findings.
== END 2019-06-22 23:54 | disposition home or self-care (01) ==
LOC: ED 19:17
DX: E87.6 Hypokalemia (principal); F15.10 Other stimulant abuse, uncomplicated; R07.9 Chest pain, unspecified; R55 Syncope and collapse
CPT/HCPCS: 36000; 36415; 71045; 80053; 80307; 83735; 84484; 85025; 93005; 93041; 94760; 99284; A9270-GY; G0480

== ENCOUNTER 2020-04-24 17:34 | Emergency (ER) | payer MEDICAID ==
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
[2020-04-24] MEDS ORDERED: KEFLEX 500 MG PO ONE (18:46)
[2020-04-24] MEDS ORDERED: Indocin 25 MG ONE (18:47)
[2020-04-24] MEDS ORDERED: KEFLEX 500 MG ONE (18:47)
[2020-04-24] MEDS ORDERED: Indocin 25 MG PO ONE (18:47)
[2020-04-24] MEDS ORDERED: DELTASONE 20 MG ONE (18:48)
[2020-04-24 18:59] VITALS: BP 111/70; PULSE 56; O2SAT 97
--- NOTE | 2020-04-25 09:02 | XRAY ---
Indication: Left face pain 5 days. Multiple contiguous axial images obtained through the sinuses. Sagittal and coronal reformatted images obtained. Comparison: None There is moderate left ethmoid, minimal left frontal, and minimal bilateral maxillary sinus mucosal thickening without fluid leveling. There has been bilateral maxillary sinus antrectomy. Moderate nasoseptal deviation to the left. No acute fracture, suspicious bony lesions, or radiopaque foreign body. Visualized noncontrasted soft tissues including globes and base of the brain unremarkable. Impression: 1. Paranasal sinus disease and nasal septal deviation as detailed. 2. Remaining CT sinuses negative. Comment: Preliminary interpretation was made by [facility]. No critical discrepancy.
[2020-04-25] MEDS ORDERED: DELTASONE 20 MG PO ONE (18:45)
== END 2020-04-24 19:00 | disposition home or self-care (01) ==
LOC: ED 17:34
DX: J32.9 Chronic sinusitis, unspecified (principal); R55 Syncope and collapse
CPT/HCPCS: 70486; 99284; A9270-GY

== ENCOUNTER 2020-09-25 22:48 | Emergency (ER) | payer MEDICAID, OTHER ==
[2020-09-25] MEDS ORDERED: TORAdol 30 mg Injection IM ONE (22:53)
[2020-09-25] MEDS ORDERED: BACTRIM DS TABLET PO STA (22:54)
[2020-09-25 23:03] VITALS: O2SAT 98
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
[2020-09-25] MEDS ORDERED: BACTRIM DS TABLET PO ONE (23:06)
[2020-09-25] MEDS ORDERED: TORAdol 30 mg Injection ONE (23:06)
[2020-09-25 23:37] VITALS: BP 111/62; PULSE 87
== END 2020-09-25 23:30 | disposition home or self-care (01) ==
LOC: ED 22:48
DX: S30.861A Insect bite (nonvenomous) of abdominal wall, initial encounter (principal); W57.XXXA Bitten or stung by nonvenomous insect and other nonvenomous arthropods, initial encounter
CPT/HCPCS: 96372; 99283; J1885; A9270-GY

== ENCOUNTER 2020-11-07 19:00 | Emergency (ER) | payer OTHER ==
[2020-11-07 21:01] LABS: Appearance CLEAR (CLEAR); Bilirubin NEGATIVE (NEGATIVE); Blood NEGATIVE Ery/ul (0-5); Glucose NEGATIVE (NEGATIVE); Ketones NEGATIVE (NEGATIVE); Leukocyte Esterase NEGATIVE (NEGATIVE); Nitrite NEGATIVE (NEGATIVE); Protein,Urine Dip NEGATIVE (Negative); Specific Gravity 1.009 (1.005-1.025); Urobilinogen NEGATIVE mg/dL (0-1)
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
[2020-11-07 21:50] LABS: Absolute Neutrophil Ct (ANC) 2.34 (1.4-6.9); BASOPHIL % 0.3 % (0.0-0.4); Basophil (Absolute #) 0.02 (0-0.4); Eosinophil (Absolute #) 0.26 (0-0.5); Hematocrit 43.7 % (42-50); Hemoglobin 14.5 gm/dl (12.5-18.0); Lymphocyte (Absolute #) 3.23 (1.0-4.6); Lymphocytes % 49.2 % (24.0-44.0); Mean Cell Volume 97.8 fl (78-100); Mean Corpuscular Hemoglobin 32.4 pg (26-32); Mean Corpuscular Hgb Concent. 33.2 g/dl (32-36); Mean Platelet Volume 8.7 fl (7.5-11.0); Monocyte (Absolute #) 0.71 (0.0-1.3); Monocytes % 10.8 % (0.0-12.0); Neutrophil % 35.7 % (36.0-66.0); Platelet Count 264 K/mm3 (150-450); Red Blood Count 4.47 M/mm3 (4.1-5.6); Red Cell Distribution Width 12.8 % (11.5-14.0); White Blood Count 6.6 K/mm3 (4.0-10.5)
[2020-11-07] MEDS ORDERED: TORAdol 30 mg Injection IM ONE (21:54)
[2020-11-07 22:00] LABS: ALBUMIN 4.1 g/dL (3.5-5.0); ALKALINE PHOSPHATASE 81 U/L (38-126); AMYLASE 84 U/L (30-110); ANION GAP 12.6 MEQ/L (5-15); BLOOD UREA NITROGEN 17 mg/dL (9-20); CHLORIDE 103 mmol/L (98-107); Calcium 9.2 mg/dL (8.4-10.2); Carbon Dioxide 28 mmol/L (22-30); Creatinine 1 1.03 mg/dL (0.66-1.25); EST GLOMERULAR FILTRATION RATE > 60.0 ML/MIN; Glucose 92 mg/dL (74-106); LIPASE 29 U/L (23-300); Potassium 4.2 mmol/L (3.5-5.1); SGOT/AST 16 U/L (17-59); SGPT/ALT 15 U/L (0-50); SODIUM 139 mmol/L (137-145); Total Protein 7.1 g/dL (6.3-8.2)
[2020-11-07] MEDS ORDERED: TORAdol 30 mg Injection ONE (22:03)
[2020-11-07 22:42] LABS: Amphetamine,Urine NEGATIVE (NEGATIVE); Barbiturate,Urine NEGATIVE (NEGATIVE); Benzodiazepine,Urine NEGATIVE (NEGATIVE); Cocaine,Urine NEGATIVE (NEGATIVE); Methadone,Urine NEGATIVE (NEGATIVE); Opiate,Urine NEGATIVE (NEGATIVE); PCP,Urine NEGATIVE (NEGATIVE); THC,Urine NEGATIVE (NEGATIVE)
[2020-11-07 22:49] VITALS: O2SAT 99
[2020-11-07 23:00] VITALS: BP 122/83; PULSE 80
--- NOTE | 2020-11-08 08:47 | XRAY ---
Indication: Left flank pain. Nausea. Multiple contiguous axial images obtained through the abdomen and pelvis without contrast. Comparison: August 01, 2018. Lung bases demonstrate stable left lower lobe subpleural calcified granuloma. No infiltrate or effusion. Heart not enlarged. Stomach is distended with food/fluid. Noncontrasted stomach and bowel loops nonobstructed. Normal appendix. Again mild diffuse scattered colonic fecal debris throughout with new moderate rectal impaction. Gallbladder contracted without gallstones. No free fluid/air. Remaining liver, gallbladder, pancreas, spleen, adrenal glands, kidneys, ureters, bladder, and aorta are unremarkable for noncontrast exam. Osseous structures intact. Impression: 1. Again mild diffuse fecal stasis with new rectal impaction. 2. Remaining CT abdomen/pelvis without contrast exam is negative.
== END 2020-11-07 22:59 | disposition home or self-care (01) ==
LOC: ED 19:00
DX: R10.11 Right upper quadrant pain (principal); R10.31 Right lower quadrant pain; K59.00 Constipation, unspecified; Z79.899 Other long term (current) drug therapy
CPT/HCPCS: 36415; 74176; 80053; 80307; 81001; 82150; 83690; 85025; 96372; 99284; J1885

== ENCOUNTER 2020-11-10 20:28 | Emergency (ER) | payer OTHER ==
[2020-11-10] MEDS ORDERED: TORAdol 30 mg Injection IV ONE (20:59)
[2020-11-10] MEDS ORDERED: Zofran 4 MG/2 ML VIAL IV ONE (20:59)
[2020-11-10] MEDS ORDERED: Sodium Chloride 0.9% 1000 ML 1,000 ML IV STA (20:59)
[2020-11-10] MEDS ORDERED: Sodium Chloride 0.9% 1000 ML 1,000 ML ONE (21:04)
[2020-11-10] MEDS ORDERED: Zofran 4 MG/2 ML VIAL ONE (21:04)
[2020-11-10] MEDS ORDERED: TORAdol 30 mg Injection ONE (21:04)
[2020-11-10 21:09] LABS: Absolute Neutrophil Ct (ANC) 2.56 (1.4-6.9); BASOPHIL % 0.3 % (0.0-0.4); Basophil (Absolute #) 0.02 (0-0.4); Eosinophil % 2.8 % (0.00-5.0); Eosinophil (Absolute #) 0.21 (0-0.5); Hematocrit 45.8 % (42-50); Lymphocytes % 52.8 % (24.0-44.0); Mean Cell Volume 98.9 fl (78-100); Mean Corpuscular Hemoglobin 32.4 pg (26-32); Mean Corpuscular Hgb Concent. 32.8 g/dl (32-36); Mean Platelet Volume 9.1 fl (7.5-11.0); Monocyte (Absolute #) 0.69 (0.0-1.3); Monocytes % 9.3 % (0.0-12.0); Neutrophil % 34.8 % (36.0-66.0); Platelet Count 284 K/mm3 (150-450); Red Blood Count 4.63 M/mm3 (4.1-5.6); Red Cell Distribution Width 12.9 % (11.5-14.0); White Blood Count 7.4 K/mm3 (4.0-10.5)
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
[2020-11-10 21:16] LABS: ALBUMIN 4.6 g/dL (3.5-5.0); ALKALINE PHOSPHATASE 103 U/L (38-126); ANION GAP 16.9 MEQ/L (5-15); BLOOD UREA NITROGEN 12 mg/dL (9-20); CHLORIDE 102 mmol/L (98-107); Calcium 9.6 mg/dL (8.4-10.2); Carbon Dioxide 27 mmol/L (22-30); Creatinine 1 0.95 mg/dL (0.66-1.25); EST GLOMERULAR FILTRATION RATE > 60.0 ML/MIN; Glucose 80 mg/dL (74-106); LIPASE 39 U/L (23-300); Potassium 4.3 mmol/L (3.5-5.1); SGOT/AST 21 U/L (17-59); SGPT/ALT 19 U/L (0-50); SODIUM 142 mmol/L (137-145); Total Protein 7.8 g/dL (6.3-8.2)
[2020-11-10 21:34] VITALS: BP 118/72
[2020-11-10 22:34] LABS: Appearance CLEAR (CLEAR); Bilirubin NEGATIVE (NEGATIVE); Blood NEGATIVE Ery/ul (0-5); Glucose NEGATIVE (NEGATIVE); Ketones NEGATIVE (NEGATIVE); Leukocyte Esterase NEGATIVE (NEGATIVE); Nitrite NEGATIVE (NEGATIVE); Protein,Urine Dip NEGATIVE (Negative); Specific Gravity 1.011 (1.005-1.025); Urobilinogen NEGATIVE mg/dL (0-1)
[2020-11-10 22:56] VITALS: PULSE 72; O2SAT 98
--- NOTE | 2020-11-11 09:15 | XRAY ---
Indication: Right flank/right upper quadrant pain. History renal stones. Multiple contiguous axial images obtained through the abdomen and pelvis without contrast. Comparison: November 07, 2020. Lung bases remain clear again with incidental mild left lower lobe calcific granuloma. Heart not enlarged. Stomach is now markedly distended with fluid/fluid. Noncontrasted bowel loops remain nonobstructed with normal appendix. Worsening mild diffuse scattered colonic fecal debris throughout again with rectal impaction. Gallbladder partially contracted without gallstones. No free fluid/air. Remaining liver, gallbladder, pancreas, spleen, adrenal glands, kidneys, ureters, bladder, and aorta are unremarkable for noncontrast exam. Impression: 1. Again mild diffuse fecal stasis with rectal impaction. 2. Remaining CT abdomen/pelvis without contrast exam is negative. Incidental findings above.
== END 2020-11-10 23:01 | disposition home or self-care (01) ==
LOC: ED 20:28
DX: R10.9 Unspecified abdominal pain (principal); K59.00 Constipation, unspecified
CPT/HCPCS: 36000; 36415; 74176; 80053; 81001; 83690; 85025; 96360; 96374; 96375; 99284; J1885; J2405

== ENCOUNTER → 2021-03-13 | Emergency (ER) | payer OTHER | END | disposition left against medical advice (07) | LOC: ED 18:40 | DX: Z53.21 Procedure and treatment not carried out due to patient leaving prior to being seen by health care provider (principal) ==

== ENCOUNTER 2021-03-14 15:45 | Emergency (ER) | payer OTHER ==
[2021-03-14 15:58] VITALS: O2SAT 100
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
[2021-03-14 16:21] VITALS: BP 139/95; PULSE 97
== END 2021-03-14 16:24 | disposition home or self-care (01) ==
LOC: ED 15:45
DX: T69.9XXA Effect of reduced temperature, unspecified, initial encounter (principal); I25.2 Old myocardial infarction; Z72.0 Tobacco use
CPT/HCPCS: 99283